=== PATIENT | female | born 1990 | race Caucasian/White ===

== ENCOUNTER 2019-01-21 17:03 | Inpatient (IN) ==
[2019-01-21] MEDS ORDERED: KETOROLAC TROMETHAMINE 15 MG/ML VIAL IV STA (17:31)
[2019-01-21 17:46] LABS: Basophils # (auto) 0.01 K/uL (0-0.2); Basophils % (auto) 0.2 %; Eosinophils # (auto) 0.03 K/uL (0-0.5); Eosinophils % (auto) 0.6 %; Hematocrit (blood only) 37.5 % (37-47); Hemoglobin 13.1 g/dL (12.0-16.0); Immature Granulocytes # (auto) 0.02 K/uL (0.00-0.02); Immature Granulocytes % (auto) 0.4 %; Lymphocytes # (auto) 1.21 K/uL (1.2-3.4); Lymphocytes % (auto) 24.7 %; Mean Corpuscular Hgb Conc 34.9 g/dL (32-36); Mean Corpuscular Volume 91.7 fL (80-100); Mean Platelet Volume 8.7 fL (7.4-10.4); Monocytes # (auto) 0.61 K/uL (0.11-0.59); Monocytes % (auto) 12.5 %; Neutrophils # (auto) 3.01 K/uL (1.4-6.5); Neutrophils % (auto) 61.6 %; Platelet Count 172 K/uL (130-400); RDW Coefficient of Variation 12.3 % (11.5-14.5); RDW Standard Deviation 41.6 fL (36.4-46.3); Red Blood Count 4.09 M/uL (4.2-5.4); White Blood Count 4.89 K/uL (4.8-10.8)
[2019-01-21] MEDS ORDERED: DOXYCYCLINE HYCLATE 100 MG in DEXTROSE 5% 100 ML IV STA (17:57)
[2019-01-21] MEDS ORDERED: metroNIDAZOLE 500 MG/100 ML BAG IV STA (17:57)
[2019-01-21 18:18] LABS: BUN Creatinine Ratio 10.2 (10-20); Calcium 8.7 mg/dl (8.5-10.1); Creatinine Clr Calc Pharmacy 113.4 ml/min; Est GFR (African American) 133.4; Est GFR (Non-African American) 115.1; Potassium 3.6 mmol/L (3.5-5.1)
--- NOTE | 2019-01-21 18:25 | Emergency Department Note ---
Entered by Allegra Reveles acting as a scribe for Sixto Herrmann M.D. History of Present Illness General Chief complaint: Infection, Wound Stated complaint: RT HAND/WRIST INFECTION - DUE TO CAT BITE Source: patient Limitations: no limitations History of Present Illness Provider complaint: Infection Onset (ago): day(s) 1 Location: upper extremity (+hand) and right Radiation: proximal Maximum Pain Intensity: 8 Quality: + burning Associated symptoms: no fever/chills Treatments prior to arrival: other (+Augmentin ) The patient is a 28 year old female who presents to the Emergency Room with com plaints of an infection that began 1 day prior to arrival. The patient states that she was bitten on her right hand by a stray cat 1 day prior to arrival. The patient states that she immediately came to the ED after the bite. The patient states that she was given IV antibiotics and was then discharged home. The patient states that the rash started to spread so she states she came back to the ED. The patient states that she was given IV antibiotics and Augmentin prior to discharge. The patient states that she took 1 dose of her antibiotic last night and another dosage prior to arrival. The patient states that even after taking her antibiotics, the rash is spreading down her right forearm and states that her pain now radiates to her wrist. The patient describes her pain as a burning in quality. The patient denies any fevers. 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 and A total of 10 systems reviewed and were otherwise negative Physical Exam Vital Signs Vital Signs - 24 hr 01/21/19 17:07 Temperature 36.9 C Temperature Source Oral Sepsis Recent Fever Within 48 Hours No Sepsis New/Unexplained Change in Mental Status No Sepsis Action Taken by Nursing No Action Required Pulse Rate 72 Pulse Rhythm Regular Pulse Strength Normal Respiratory Rate 18 Respiratory Effort / Characteristics Non-Labored Spontaneous Respiratory Depth Normal Respiratory Pattern Regular Blood Pressure 129/83 Blood Pressure Mean 98 Blood Pressure Position Sitting Pulse Oximetry 100 Oxygen Delivery Method Room Air GENERAL: Awake, alert, well-appearing, in no distress. HENT: Normocephalic, atraumatic. EYES: Normal conjunctiva. Sclera non-icteric. RESPIRATORY: Normal respiratory effort. CARDIAC: Normal rate. Extremities warm and well perfused. RECTAL: Deferred. UPPER EXTREMITIES: Neurovascularly intact right hand, swelling and erythema. Thenar eminence extending to the right wrist and distal forearm, tender with no fluctuance, extends beyond prior demarcation. LOWER EXTREMITIES: Calves are equal size bilaterally and non-tender. No edema NEURO: Normal sensorium. No sensory or motor deficits noted. No facial droop or slurred speech. SKIN: Warm and dry. No rash or jaundice noted. Course 1719: The patient was evaluated in room C6, and a complete history and physical examination were performed. 1800: I checked on the patient. The patient was updated on their imaging and lab results. 1826: I discussed the patient's case with Henry Dejesus who will evaulate the patient for further hospitalization. Danette Ledbetter also recommends the patient receive an XRAY. Consultations Consultation #1: Henry Dejesus Time: 18:26 Administered Medications Ioversol (Optiray 320 100ml) 89 ml IV ONCE PRN PRN Reason: Interaction Checking Stop: 01/25/19 20:24 Last Admin: 01/21/19 20:26 Dose: 89 ml Documented by: [id number] Discontinued Medications Doxycycline Hyclate 100 mg/ (Dextrose) 110 mls @ 50 mls/hr IV NOW STA Stop: 01/21/19 20:08 Last Admin: 01/21/19 18:44 Dose: 50 mls/hr Documented by: [id number] Ketorolac Tromethamine (Toradol) 15 mg IV NOW STA Stop: 01/21/19 17:32 Last Admin: 01/21/19 17:42 Dose: 15 mg Documented by: [id number] Medical Decision Making Differential Diagnosis Differential diagnosis includes etiologies such as cellulitis, abscess, MRSA i nfection, DVT, necrotizing fasciitis, dermatitis, drug eruption, as well as others were entertained. Medical Records Attestation: I reviewed the patient's medical records. Home Medications Current Medication List: was personally reviewed by me Laboratory Data Attestation: I reviewed the patient's lab results. Result diagrams: 01/21/19 17:33 01/21/19 17:33 Lab Results 01/21/19 01/21/19 Range/Units 17:33 17:33 WBC 4.89 (4.8-10.8) K/uL RBC 4.09 L (4.2-5.4) M/uL Hgb 13.1 (12.0-16.0) g/dL Hct 37.5 (37-47) % MCV 91.7 (80-100) fL MCH 32.0 (25-34) pg MCHC 34.9 (32-36) g/dL RDW Std Deviation 41.6 (36.4-46.3) fL RDW Coeff of Tay 12.3 (11.5-14.5) % Plt Count 172 (130-400) K/uL MPV 8.7 (7.4-10.4) fL Immature Gran % (Auto) 0.4 % Neut % (Auto) 61.6 % Lymph % (Auto) 24.7 % [place] % (Auto) 12.5 % Eos % (Auto) 0.6 % Baso % (Auto) 0.2 % Immature Gran # (Auto) 0.02 (0.00-0.02) K/uL Neut # (Auto) 3.01 (1.4-6.5) K/uL Lymph # (Auto) 1.21 (1.2-3.4) K/uL [place] # (Auto) 0.61 H (0.11-0.59) K/uL Eos # (Auto) 0.03 (0-0.5) K/uL Baso # (Auto) 0.01 (0-0.2) K/uL Sodium 137 (136-145) mmol/L Potassium 3.6 (3.5-5.1) mmol/L Chloride 105 (98-107) mmol/L Carbon Dioxide 26 (21-32) mmol/L Anion Gap 6.0 (3-11) BUN 7 D (7-18) mg/dl Creatinine 0.71 (0.6-1.2) mg/dl Est Cr Clr Drug Dosing 113.4 ml/min Est GFR ( Amer) 133.4 Est GFR (Non-Af Amer) 115.1 BUN/Creatinine Ratio 10.2 (10-20) Glucose 83 (70-99) mg/dl Calcium 8.7 (8.5-10.1) mg/dl Imaging Data Radiologist's Impression: Radiology results as stated below per my review and the radiologist's interpretation: XR wrist RT min 3V routine HISTORY: 28 years-old Female bite acute soft tissue wound of the right forearm and wrist COMPARISON: None available TECHNIQUE: 3 views of the right wrist FINDINGS: No acute fracture, dislocation, significant degenerative changes, bony erosion or opaque foreign body. Mild soft tissue swelling about the lateral distal forearm. IMPRESSION: Mild soft tissue swelling without acute fracture or opaque foreign body. The above report was generated using voice recognition software. It may contain grammatical, syntax or spelling errors. Electronically signed by: Nazario Oswald M.D. 01/21/2019 6:46 PM Blood Pressure Blood Pressure Findings: Normal blood pressure MDM Narrative Patient is a 28-year-old female without significant past medical history presenting for reevaluation of wound to her right upper extremity. Evidently sustained a cat bite there as well as scratch yesterday. Seen here twice yeste rday initially given Augmentin as well as rabies immune globulin vaccine. Having pain here. Increasing erythema and given doses of Unasyn last night. Evidently today the infection seems to be worsening with redness spreading outside of the outlined area and is now circumferential. No fevers upon arrival. Basic laboratory studies show actually slightly improving leukocytosis. Toradol given for pain. Concerned about the spread. Do not believe this represents abscess formation yet or necrotizing fasciitis. X-ray obtained without significant findings. Not entirely circumferential at this point but again expanding beyond borders from last night. Do not believe this represents tenosynovitis at this point. Doubt joint infection at this time. Seems to be Augmentin/Unasyn failure. Discussed with pharmacy at some length and given a dose of doxycycline and Flagyl. Discussed with patient option of again trying outpatient treatment versus coming in for antibiotics and she wished to stay to monitor for continued improvement. [facility] Impression & Plan Cat bite, Cellulitis of right wrist Discharge Plan Visit Data *Final* Discharge Date/Time: 01/21/19 19:35 Chief Complaint: Infection, Wound Stated Complaint: RT HAND/WRIST INFECTION - DUE TO CAT BITE ED Provider: Sixto Herrmann Discharge Problem: Cat bite, Cellulitis of right wrist Patient Disposition: Admitted As Inpatient Discharge Instructions Interventions: ED Discharge Assessment Last Done: 01/21/19 19:35 The scribe's documentation has been prepared under my direction and personally reviewed by me in its entirety. I confirm that the note above accurately reflects all work, treatment, procedures, and medical decision making performed by me.
--- NOTE | 2019-01-21 18:47 | XRay Report ---
XR wrist RT min 3V routine HISTORY: 28 years-old Female bite acute soft tissue wound of the right forearm and wrist COMPARISON: None available TECHNIQUE: 3 views of the right wrist FINDINGS: No acute fracture, dislocation, significant degenerative changes, bony erosion or opaque foreign body . Mild soft tissue swelling about the lateral distal forearm. IMPRESSION: Mild soft tissue swelling without acute fracture or opaque foreign body. The above report was generated using voice recognition software. It may contain grammatical, syntax o r spelling errors. Electronically signed by: Nazario Oswald M.D. 01/21/2019 6:46 PM
[2019-01-21] MEDS ORDERED: ACETAMINOPHEN 325 MG TAB PO PRN (19:41)
--- NOTE | 2019-01-21 20:11 | History & Physical Report ---
Date of Service January 21, 2019 Assessment & Plan (1) Infected cat bite of hand: -Admit to [facility] -Patient presenting for evaluation of worsening infection of cat bite to right hand despite 2 other ED visits since yesterday and receiving oral Augmentin and 2 doses of IV Unasyn -Currently afebrile, labs unremarkable; does not appear septic -Received IV doxycycline and IV Flagyl in the ED, will continue with both -Concern for possible tenosynovitis, will check CT -Ortho consult, case discussed with Dr. Lockwood (2) DVT prophylaxis: -SCDs, ambulate History of Present Illness Chief Complaint: Infected cat bite Primary Care Provider: NO PCP 28-year-old female who presents to the ED for evaluation of infected cat bite to the right hand. Bite occurred on 01/20 and patient was seen in the ED and received initial rabies vaccine and discharged on Augmentin. Patient return to the ER the same evening for worsening of the wound and received 2 doses of Unasyn and was instructed to continue Augmentin. Patient reports that she has had continued redness and increasing pain around the bite area and extending into the right forearm. No drainage has been noted. She denies fevers and chills. No chest pain or shortness of breath. She denies lightheadedness, dizziness, diaphoresis, syncopal events. No abdominal pain, nausea, vomiting, diarrhea. She denies any urinary symptoms. In the ED, patient is hemodynamically stable and labs are unremarkable. She was given IV Flagyl, IV doxy, IV Toradol. 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 Beliefs That Will Affect Care: None Current Living Situation: Spouse Other Information That Helps Us Care for You: No Feels Safe at Home: Yes Safety Concerns: Feels Safe At This Time Smoking Status: Never smoker Hx Alcohol Use: Yes Alcohol type: wine Alcohol Intake Frequency Comment: 12 drinks/week Hx Substance Use: No Review of Systems Review of Systems: ROS per HPI, all other systems reviewed and negative Physical Exam Constitutional: WD/WN, vitals as above Eyes: PERRL, conjunctivae normal, anicteric sclerae ENMT: external ear and nose normal, oropharynx normal Respiratory: normal respiratory effort, lungs clear to auscultation Cardiovascular: Rate/Rhythm: regular rate and regular rhythm Vessels: normal peripheral pulses Extremities: no edema Gastrointestinal (Abdomen): normal bowel sounds, soft, nontender, no hepatosplenomegaly Musculoskeletal: no cyanosis or clubbing, extremities motor strength 5/5 Extremities: + hand abnormality (Puncture wounds noted over thenar portion of right hand with extensive surrounding edema and erythema streaking up the forearm extending outside of previously marked area, no drainage noted; good radial pulse, pain with and limited extension and flexion of thumb and wrist) Right Skin: no rashes, warm and dry Neurologic: PERRL, EOMI, accommodation nl, no face palsy, no dysarthria Psychiatric: A+Ox3, euthymic affect Results & Data Vital Signs (Past 12 Hours) Vital Signs Temp Pulse Resp BP Pulse Ox 01/21/19 19:35 36.8 C 76 18 112/76 99 01/21/19 17:07 36.9 C 72 18 129/83 100 Laboratory Results Short CBC 01/21/19 Range/Units 17:33 WBC 4.89 (4.8-10.8) K/uL Hgb 13.1 (12.0-16.0) g/dL Hct 37.5 (37-47) % Plt Count 172 (130-400) K/uL BMP 01/21/19 17:33 Sodium 137 Potassium 3.6 Chloride 105 Carbon Dioxide 26 BUN 7 D Creatinine 0.71 Glucose 83 Calcium 8.7 Diagnostic Findings RIGHT WRIST XR IMPRESSION: Mild soft tissue swelling without acute fracture or opaque foreign body. Code Status & VTE Plan VTE Prophylaxis Plan VTE Prophylaxis will be ordered: Yes Supervising Physician Co-Signing Physician Notes Pt was seen and examined. Agreed with Danette CROUCH exam, assessment and plan. 28 yo Female with no significant PMH presents to the ED for infected right hand cat bite. Pt said that she was in the ER yesterday after bitting by a cat. She said that she received rabies vaccine and 2 doses of unasyn and was discharge home on Augmentin. Pt said that she woke this morning with right hand erythema, tenderness with right thumb and thenar area swelling. She said that she took 2 doses of the Augmentin (one last night and this morning). Xray of the right wrist showed mild soft tissue swelling without acute fracture or opaque foreign body. Received IV doxy and flagyl in the ER. Will continue IV abx for now. Will get a CT with IV contrast of right hand area. Pain control. Ortho consult. Follow blood cx and CBC. Please refer to Danette CROUCH documentation for other problems. MD Deborah
[2019-01-21] MEDS ORDERED: IOVERSOL 100ml IV PRN (20:25)
--- NOTE | 2019-01-21 21:02 | CT Scan Report ---
CT hand RT w con HISTORY: 28 years-old Female infected cat bite acute right hand pain and swelling status post animal bite COMPARISON: Right wrist radiographs of same day TECHNIQUE: Multiple axial CT images of the right hand were obtained following the intravenous adminis tration of 89 mL Optiray 320 IV. A dose lowering technique was used consistent with the principals of SHIVANI. FINDINGS: Mild to moderate subcutaneous edema is noted about the volar aspect of the mid to distal forearm, vol ar hand and wrist, most pronounced laterally. No opaque foreign body or drainable fluid collection. S tudy is not tailored to assess the intrinsic ligaments and tendons. The visualized ligaments and tend ons however appear unremarkable on this study. No definite tenosynovitis or myositis identified. No acute fracture, dislocation, opaque foreign body or significant degenerative changes. No bony eros ion identified. IMPRESSION: 1. Mild to moderate subcutaneous edema about the distal forearm, hand and wrist as above is suggestiv e of cellulitis. No opaque foreign body or drainable fluid collection. 2. No acute fracture, dislocation or bony erosive changes. The above report was generated using voice recognition software. It may contain grammatical, syntax o r spelling errors. Electronically signed by: Nazario Oswald M.D. 01/21/2019 9:01 PM
[2019-01-21] MEDS: KETOROLAC TROMETHAMINE 15 MG/ML VIAL IV PRN (23:19)
[2019-01-22] MEDS: metroNIDAZOLE 500 MG/100 ML BAG IV SCH ×3 (03:41→21:31)
[2019-01-22] MEDS: KETOROLAC TROMETHAMINE 15 MG/ML VIAL IV PRN ×2 (06:03→21:06)
[2019-01-22] MEDS: DOXYCYCLINE HYCLATE 100 MG in DEXTROSE 5% 100 ML IV SCH ×2 (06:04→18:29)
[2019-01-22 06:30] LABS: Hematocrit (blood only) 34.2 % (37-47); Hemoglobin 11.9 g/dL (12.0-16.0); Mean Corpuscular Hgb Conc 34.8 g/dL (32-36); Mean Corpuscular Volume 91.7 fL (80-100); Mean Platelet Volume 8.9 fL (7.4-10.4); Platelet Count 167 K/uL (130-400); RDW Coefficient of Variation 12.2 % (11.5-14.5); RDW Standard Deviation 41.5 fL (36.4-46.3); Red Blood Count 3.73 M/uL (4.2-5.4); White Blood Count 3.34 K/uL (4.8-10.8)
[2019-01-22 07:03] LABS: Calcium 8.2 mg/dl (8.5-10.1); Creatinine Clr Calc Pharmacy 117.9 ml/min; Est GFR (Non-African American) 118.2; Potassium 4.1 mmol/L (3.5-5.1)
--- NOTE | 2019-01-22 09:17 | Hospitalist Progress Note ---
Date of Service January 22, 2019 Assessment & Plan (1) Infected cat bite of hand: CT hand and arm: IMPRESSION: 1. Mild to moderate subcutaneous edema about the distal forearm, hand and wrist as above is suggestive of cellulitis. No opaque foreign body or drainable fluid collection. 2. No acute fracture, dislocation or bony erosive changes. afebrile, no leukocytosis clinically much improved continue Doxy + Flagyl Ortho consulted, recommends to continue IV abx, re-eval tomorrow monitor (2) DVT prophylaxis: -SCDs, ambulate discussed case and plan of care with patient and her in detail, at length they are understanding, agreeable and comfortable with plan of care all questions answered Subjective ff up for cat bite with cellulitis of the right hand and forearm seen resting in bed, comfortable states she feels much better overall right hand, wrist and forearm also feels much better less pain, swelling, tenderness; also better ROM denies fever/chills, shortness of breath, chest pain no other symptoms Review of Systems Review of Systems: All systems reviewed & are unremarkable except as noted in HPI & below Physical Exam Physical Exam: General- oriented x 3, not in distress, speaks in sentences with no effort or accessory muscle use Head- atraumatic Eyes- PERRL, EOMI, anicteric ENT- oropharynx clear Neck- supple, no JVD, no adenopathy, no thyromegaly; carotids +2/2, no bruits appreciated Lungs- clear to auscultation bilaterally, no rales/wheezes Heart- normal rate, regular rhythm; no murmur, no gallop, no rub appreciated Abdomen- normal bowel sounds, nondistended, soft, nontender, no masses or hepatosplenomegaly Extremities- right hand- mild edema of the fingers and pal,, almost full ROM, no erythema of the fingers, mild erythema of the palmar region wounds in the thenar region dry, no drainage/bleeding right foerarm:very mild erythema, extending around 3 in from demarcation line proximally, mild edema, moderate tenderness, no warmth compared to pictures from the day prior,affected area is much better no pretibial edema, no calf tenderness; peripheral pulses intact Neuro- alert, oriented x 3; CN 2-12 grossly intact; motor 5/5 bilaterally;sensation 100% on all extremities; no other gross focal neurologic deficits Skin- warm & dry Results & Data Vital Signs (Past 12 Hours) Vital Signs Temp Pulse Resp BP Pulse Ox 01/22/19 07:00 36.7 C 57 L 16 108/69 98 01/21/19 23:03 36.7 C 70 20 117/70 99 Laboratory Results Laboratory Results - last 24 hr 01/21/19 01/21/19 01/22/19 17:33 17:33 05:57 WBC 4.89 3.34 L RBC 4.09 L 3.73 L Hgb 13.1 11.9 L Hct 37.5 34.2 L MCV 91.7 91.7 MCH 32.0 31.9 MCHC 34.9 34.8 RDW Std Deviation 41.6 41.5 RDW Coeff of Tay 12.3 12.2 Plt Count 172 167 MPV 8.7 8.9 Immature Gran % (Auto) 0.4 Neut % (Auto) 61.6 Lymph % (Auto) 24.7 [place] % (Auto) 12.5 Eos % (Auto) 0.6 Baso % (Auto) 0.2 Immature Gran # (Auto) 0.02 Neut # (Auto) 3.01 Lymph # (Auto) 1.21 [place] # (Auto) 0.61 H Eos # (Auto) 0.03 Baso # (Auto) 0.01 Sodium 137 Potassium 3.6 Chloride 105 Carbon Dioxide 26 Anion Gap 6.0 BUN 7 D Creatinine 0.71 Est Cr Clr Drug Dosing 113.4 Est GFR ( Amer) 133.4 Est GFR (Non-Af Amer) 115.1 BUN/Creatinine Ratio 10.2 Glucose 83 Calcium 8.7 Specimen Hemolysis 01/22/19 05:57 WBC RBC Hgb Hct MCV MCH MCHC RDW Std Deviation RDW Coeff of Tay Plt Count MPV Immature Gran % (Auto) Neut % (Auto) Lymph % (Auto) [place] % (Auto) Eos % (Auto) Baso % (Auto) Immature Gran # (Auto) Neut # (Auto) Lymph # (Auto) [place] # (Auto) Eos # (Auto) Baso # (Auto) Sodium 138 Potassium 4.1 Chloride 108 H Carbon Dioxide 25 Anion Gap 5.0 BUN 7 Creatinine 0.68 Est Cr Clr Drug Dosing 117.9 Est GFR ( Amer) 137.0 Est GFR (Non-Af Amer) 118.2 BUN/Creatinine Ratio 11.0 Glucose 85 Calcium 8.2 L Specimen Hemolysis
--- NOTE | 2019-01-22 13:54 | Orthopedic Consultation ---
Date of Consultation January 22, 2019 Assessment & Plan (1) Cat bite: at this point it appears the redness and swelling is improving with the IV antibiotics, will cont with these, allow regular diet today but keep NPO after MN tonight to recheck in am. cont to elevate for swelling, can move her fingers as much as her pain allows; CT did not show any fluid collections or abscess ; she has been on oral Augmentin and 2 doses of IV Unasyn, Received IV doxycycline and IV Flagyl in the ED, will continue with both (2) Infected cat bite of hand: History of Present Illness Reason for Consultation: infected cat bite right hand Attending Physician: Dontrell Cruz MD History of Present Illness Elisha is pleasant 28-year-old female who we are consulted on in regards to an infected cat bite to her right hand, the bite occurred on 01/20 with a stray cat, was stuck in a window and was trying to help it out, she was seen in the ER and received initial rabies vaccine and was discharged home on Augmentin. she returned to the ER the same evening for worsening of the wound and received 2 doses of Unasyn and was instructed to continue with the Augmentin. she states the pain and redness continued and has worsened and began to extend into the right forearm. No drainage has been noted. She denies fevers and chills. No chest pain or shortness of breath. She denies lightheadedness, dizziness, diaphoresis, syncopal events. No abdominal pain, nausea, vomiting, diarrhea. she did have some numbness into her thumb but since has resolved, she feels was related to her swelling. 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 Beliefs That Will Affect Care: None Current Living Situation: Spouse Other Information That Helps Us Care for You: No Feels Safe at Home: Yes Safety Concerns: Feels Safe At This Time Smoking Status: Never smoker Hx Alcohol Use: Yes Alcohol type: wine Alcohol Intake Frequency Comment: 12 drinks/week Hx Substance Use: No Review of Systems Review of Systems: All systems reviewed & are unremarkable except as noted in HPI & below Constitutional: no fever and no chills Respiratory: no cough and no dyspnea Cardiovascular: no chest pain, no dyspnea and no orthopnea Gastrointestinal: no abdominal pain, no nausea and no vomiting Musculoskeletal: as per Subjective / HPI Physical Exam Physical Exam: Vital Signs Temp 36.7 C 01/22/19 07:00 Pulse 57 L 01/22/19 07:00 Resp 16 01/22/19 07:00 BP 108/69 01/22/19 07:00 Pulse Ox 98 01/22/19 07:00 Intake & Output 01/21/19 01/22/19 01/22/19 18:59 06:59 18:59 Intake Total 730 / 730 210 / 210 Balance 730 / 730 210 / 210 Weight 71.5 kg 70.9 kg Intake: IV 310 / 310 210 / 210 Vibramycin 100 mg In D5 100 ml 110 / 110 110 / 110 @ 50 mls/hr IV Q12H MACHELLE Rx#: [id number] FLAGYL 500 mg In 100 ml @ 100 200 / 200 100 / 100 mls/hr IV Q8H MACHELLE Rx#:[id number] Oral 420 / 420 Constitutional: WD/WN, vitals as above no acute distress Musculoskeletal: right upper extremity: erythema present over the radial and thenar aspect of the thumb, puncture wounds noted over the palmar surface of the thumb, erythema does extend approximately 10cm up the forearm but appears less than earlier markings; she is able to extend her thumb and opposition but with some pain; currently there is no drainage noted from the puncture wounds; radial +2, CR <2 seconds, diffuse tenderness to the wrist both radial and ulnar sided; discomfort noted with wrist motion; Results & Data Vital Signs (Past 12 Hours) Vital Signs Temp Pulse Resp BP Pulse Ox 01/22/19 07:00 36.7 C 57 L 16 108/69 98 Laboratory Results Laboratory Results WBC 3.34 K/uL (4.8-10.8) L 01/22/19 05:57 RBC 3.73 M/uL (4.2-5.4) L 01/22/19 05:57 Hgb 11.9 g/dL (12.0-16.0) L 01/22/19 05:57 Hct 34.2 % (37-47) L 01/22/19 05:57 MCV 91.7 fL (80-100) 01/22/19 05:57 MCH 31.9 pg (25-34) 01/22/19 05:57 MCHC 34.8 g/dL (32-36) 01/22/19 05:57 RDW Std Deviation 41.5 fL (36.4-46.3) 01/22/19 05:57 RDW Coeff of Tay 12.2 % (11.5-14.5) 01/22/19 05:57 Plt Count 167 K/uL (130-400) 01/22/19 05:57 MPV 8.9 fL (7.4-10.4) 01/22/19 05:57 Immature Gran % (Auto) 0.4 % 01/21/19 17:33 Neut % (Auto) 61.6 % 01/21/19 17:33 Lymph % (Auto) 24.7 % 01/21/19 17:33 Dawes % (Auto) 12.5 % 01/21/19 17:33 Eos % (Auto) 0.6 % 01/21/19 17:33 Baso % (Auto) 0.2 % 01/21/19 17:33 Immature Gran # (Auto) 0.02 K/uL (0.00-0.02) 01/21/19 17:33 Neut # (Auto) 3.01 K/uL (1.4-6.5) 01/21/19 17:33 Lymph # (Auto) 1.21 K/uL (1.2-3.4) 01/21/19 17:33 Dawes # (Auto) 0.61 K/uL (0.11-0.59) H 01/21/19 17:33 Eos # (Auto) 0.03 K/uL (0-0.5) 01/21/19 17:33 Baso # (Auto) 0.01 K/uL (0-0.2) 01/21/19 17:33 Sodium 138 mmol/L (136-145) 01/22/19 05:57 Potassium 4.1 mmol/L (3.5-5.1) 01/22/19 05:57 Chloride 108 mmol/L (98-107) H 01/22/19 05:57 Carbon Dioxide 25 mmol/L (21-32) 01/22/19 05:57 Anion Gap 5.0 (3-11) 01/22/19 05:57 BUN 7 mg/dl (7-18) 01/22/19 05:57 Creatinine 0.68 mg/dl (0.6-1.2) 01/22/19 05:57 Est Cr Clr Drug Dosing 117.9 ml/min 01/22/19 05:57 Est GFR ( Amer) 137.0 01/22/19 05:57 Est GFR (Non-Af Amer) 118.2 01/22/19 05:57 BUN/Creatinine Ratio 11.0 (10-20) 01/22/19 05:57 Glucose 85 mg/dl (70-99) 01/22/19 05:57 Calcium 8.2 mg/dl (8.5-10.1) L 01/22/19 05:57 Specimen Hemolysis 01/22/19 05:[address] hand RT w con HISTORY: 28 years-old Female infected cat bite acute right hand pain and swelling status post animal bite COMPARISON: Right wrist radiographs of same day TECHNIQUE: Multiple axial CT images of the right hand were obtained following the intravenous administration of 89 mL Optiray 320 IV. A dose lowering technique was used consistent with the principals of SHIVANI. FINDINGS: Mild to moderate subcutaneous edema is noted about the volar aspect of the mid to distal forearm, volar hand and wrist, most pronounced laterally. No opaque foreign body or drainable fluid collection. Study is not tailored to assess the intrinsic ligaments and tendons. The visualized ligaments and tendons however appear unremarkable on this study. No definite tenosynovitis or myositis identified. No acute fracture, dislocation, opaque foreign body or significant degenerative changes. No bony erosion identified. IMPRESSION: 1. Mild to moderate subcutaneous edema about the distal forearm, hand and wrist as above is suggestive of cellulitis. No opaque foreign body or drainable fluid collection. 2. No acute fracture, dislocation or bony erosive changes. (1) Cat bite Encounter type: subsequent encounter Qualified Code(s): W55.01XD - Bitten by cat, subsequent encounter
[2019-01-23] MEDS: metroNIDAZOLE 500 MG/100 ML BAG IV SCH (04:42)
[2019-01-23] MEDS: DOXYCYCLINE HYCLATE 100 MG in DEXTROSE 5% 100 ML IV SCH (05:40)
[2019-01-23] MEDS ORDERED: RABIES VACC (IMOVAX) HUMAN DIPL CELL 2.5 UNITS/ML SYR IM ONE ×2 (07:00→09:00)
[2019-01-23 07:36] LABS: Basophils # (auto) 0.01 K/uL (0-0.2); Basophils % (auto) 0.3 %; Hematocrit (blood only) 35.8 % (37-47); Hemoglobin 12.4 g/dL (12.0-16.0); Lymphocytes # (auto) 1.07 K/uL (1.2-3.4); Lymphocytes % (auto) 32.2 %; Mean Platelet Volume 8.5 fL (7.4-10.4); Monocytes # (auto) 0.48 K/uL (0.11-0.59); Monocytes % (auto) 14.5 %; Neutrophils # (auto) 1.66 K/uL (1.4-6.5); Platelet Count 166 K/uL (130-400); RDW Coefficient of Variation 12.1 % (11.5-14.5); RDW Standard Deviation 40.9 fL (36.4-46.3); Red Blood Count 3.89 M/uL (4.2-5.4); White Blood Count 3.32 K/uL (4.8-10.8)
[2019-01-23 07:37] LABS: Mean Corpuscular Hgb Conc 34.6 g/dL (32-36)
[2019-01-23 07:52] LABS: BUN Creatinine Ratio 11.6 (10-20); Calcium 8.7 mg/dl (8.5-10.1); Creatinine Clr Calc Pharmacy 117.9 ml/min; Est GFR (Non-African American) 118.2; Potassium 4.1 mmol/L (3.5-5.1)
--- NOTE | 2019-01-23 17:45 | Hospitalist Progress Note ---
Date of Service January 23, 2019 Assessment & Plan (1) Infected cat bite of hand: CT hand and arm: IMPRESSION: 1. Mild to moderate subcutaneous edema about the distal forearm, hand and wrist as above is suggestive of cellulitis. No opaque foreign body or drainable fluid collection. 2. No acute fracture, dislocation or bony erosive changes. remains afebrile, no leukocytosis clinically much improved after IV Doxy and Flagyl started blood cultures: negative x 48 hours evaluated by Ortho, no surgical intervention recommended affected area continued to improve significantly patient unable to wait for Ortho re-evaluation on discharge day as she had to catch a flight at 10am overall, cellulitis improved significantly with near resolution of edema, no erythema discharge plan: Doxycycline 100mg BID and Flagyl 500mg TID x 10 days precautions given to return to ER immediately if with worsening of symptoms instructions given re: wound care patient also to complete rabies vaccine series advised to ff up with PCP early next week patient verbalized understanding, and she was agreeable and comfortable with the plan (2) DVT prophylaxis: -SCDs, ambulate Dispo: ff up with PCP early next week (patient prefers to ff up with non [facility] Prov ider) Subjective ff up for cat bite, cellulitis right hand and forearm seen resting in bed, in good spirits states she feels much better overall right hand and forerarm also feels better as per patient able to move fingers, hands, wrist much bettter pain and tenderness much less denies other symptoms no fever/chills states she is ready and would like to be discharged today Review of Systems Review of Systems: All systems reviewed & are unremarkable except as noted in HPI & below Physical Exam Physical Exam: General- oriented x 3, not in distress, speaks in sentences with no effort or accessory muscle use Eyes- anicteric Neck- no JVD Lungs- clear breath sounds bilaterally, no rales/wheezes Heart- normal rate, regular rhythm; no murmurs Abdomen- normal bowel sounds, nondistended, soft, nontender Extremities- right hand- very minimal edema on the hypothenar region, puncture wounds healing well erythema of hand and foreram almost resolved no warmth, very minimal tenderness no streaking on the arm able to move wrist fully no pretibial edema, no calf tenderness Neuro- alert, oriented x 3; no gross focal neurologic deficits Skin- warm & dry Results & Data Vital Signs (Past 12 Hours) Vital Signs Temp Pulse Resp BP BP Pulse Ox 01/23/19 09:49 36.7 C 60 20 112/74 105/65 97 01/23/19 06:38 36.7 C 60 20 105/65 97 Laboratory Results Laboratory Results - last 24 hr 01/23/19 01/23/19 07:27 07:27 WBC 3.32 L RBC 3.89 L Hgb 12.4 Hct 35.8 L MCV 92.0 MCH 31.9 MCHC 34.6 RDW Std Deviation 40.9 RDW Coeff of Tay 12.1 Plt Count 166 MPV 8.5 Immature Gran % (Auto) 0.0 Neut % (Auto) 50.0 Lymph % (Auto) 32.2 Gates % (Auto) 14.5 Eos % (Auto) 3.0 Baso % (Auto) 0.3 Immature Gran # (Auto) 0.00 Neut # (Auto) 1.66 Lymph # (Auto) 1.07 L Gates # (Auto) 0.48 Eos # (Auto) 0.10 Baso # (Auto) 0.01 Sodium 140 Potassium 4.1 Chloride 109 H Carbon Dioxide 24 Anion Gap 7.0 BUN 8 Creatinine 0.68 Est Cr Clr Drug Dosing 117.9 Est GFR ( Amer) 137.0 Est GFR (Non-Af Amer) 118.2 BUN/Creatinine Ratio 11.6 Glucose 90 Calcium 8.7
--- NOTE | 2019-01-23 18:01 | Discharge Summary ---
Date of Service January 23, 2019 Admission HPI Per Admitting Provider 28-year-old female who presents to the ED for evaluation of infected cat bite to the right hand. Bite occurred on 01/20 and patient was seen in the ED and received initial rabies vaccine and discharged on Augmentin. Patient return to the ER the same evening for worsening of the wound and received 2 doses of Unasyn and was instructed to continue Augmentin. Patient reports that she has had continued redness and increasing pain around the bite area and extending into the right forearm. No drainage has been noted. She denies fevers and chills. No chest pain or shortness of breath. She denies lightheadedness, di zziness, diaphoresis, syncopal events. No abdominal pain, nausea, vomiting, diarrhea. She denies any urinary symptoms. In the ED, patient is hemodynamically stable and labs are unremarkable. She was given IV Flagyl, IV doxy, IV Toradol. Admission Exam Per Admitting Provider Constitutional: WD/WN, vitals as above Eyes: PERRL, conjunctivae normal, anicteric sclerae ENMT: external ear and nose normal, oropharynx normal Respiratory: normal respiratory effort, lungs clear to auscultation Cardiovascular: Rate/Rhythm: regular rate and regular rhythm Vessels: normal peripheral pulses Extremities: no edema Gastrointestinal (Abdomen): normal bowel sounds, soft, nontender, no hepatosplenomegaly Musculoskeletal: no cyanosis or clubbing, extremities motor strength 5/5 Extremities: + hand abnormality (Puncture wounds noted over thenar portion of right hand with extensive surrounding edema and erythema streaking up the forearm extending outside of previously marked area, no drainage noted; good radial pulse, pain with and limited extension and flexion of thumb and wrist) Right Skin: no rashes, warm and dry Neurologic: PERRL, EOMI, accommodation nl, no face palsy, no dysarthria Psychiatric: A+Ox3, euthymic affect Principal Diagnosis CAT BITE, CELLULITIS OF THE RIGHT HAND AND FOREARM Discharge Exam General- oriented x 3, not in distress, speaks in sentences with no effort or accessory muscle use Eyes- anicteric Neck- no JVD Lungs- clear breath sounds bilaterally, no rales/wheezes Heart- normal rate, regular rhythm; no murmurs Abdomen- normal bowel sounds, nondistended, soft, nontender Extremities- right hand- very minimal edema on the hypothenar region, puncture wounds healing well erythema of hand and foreram almost resolved no warmth, very minimal tenderness no streaking on the arm able to move wrist fully no pretibial edema, no calf tenderness Neuro- alert, oriented x 3; no gross focal neurologic deficits Skin- warm & dry Discharge Data Allergies Allergy/AdvReac Type Severity Reaction Status Date / Time No Known Allergies Allergy Verified 01/20/19 20:24 Consultations 01/21/19 18:30 ED Decision to Admit Stat 01/21/19 19:41 Consult Orthopedic Surgery Routine Ordered Studies 01/21/19 19:41 CT hand RT w con Urgent CT hand RT w con HISTORY: 28 years-old Female infected cat bite acute right hand pain and swelling status post animal bite COMPARISON: Right wrist radiographs of same day TECHNIQUE: Multiple axial CT images of the right hand were obtained following the intravenous administration of 89 mL Optiray 320 IV. A dose lowering technique was used consistent with the principals of SHIVANI. FINDINGS: Mild to moderate subcutaneous edema is noted about the volar aspect of the mid to distal forearm, volar hand and wrist, most pronounced laterally. No opaque foreign body or drainable fluid collection. Study is not tailored to assess the intrinsic ligaments and tendons. The visualized ligaments and tendons however appear unremarkable on this study. No definite tenosynovitis or myositis identified. No acute fracture, dislocation, opaque foreign body or significant degenerative changes. No bony erosion identified. IMPRESSION: 1. Mild to moderate subcutaneous edema about the distal forearm, hand and wrist as above is suggestive of cellulitis. No opaque foreign body or drainable fluid collection. 2. No acute fracture, dislocation or bony erosive changes. Hospital Course (1) Infected cat bite of hand: CT hand and arm: IMPRESSION: 1. Mild to moderate subcutaneous edema about the distal forearm, hand and wrist as above is suggestive of cellulitis. No opaque foreign body or drainable fluid collection. 2. No acute fracture, dislocation or bony erosive changes. remains afebrile, no leukocytosis clinically much improved after IV Doxy and Flagyl started blood cultures: negative x 48 hours evaluated by Ortho Svc, no surgical intervention recommended affected area continued to improve significantly patient unable to wait for Ortho re-evaluation on discharge day as she had to catch a flight at 10am overall, cellulitis improved significantly with near resolution of edema, no erythema discharge plan: Doxycycline 100mg BID and Flagyl 500mg TID x 10 days precautions given to return to ER immediately if with worsening of symptoms instructions given re: wound care patient also to complete rabies vaccine series advised to ff up with PCP early next week patient verbalized understanding, and she was agreeable and comfortable with the plan (2) DVT prophylaxis: -SCDs, ambulate Dispo: ff up with PCP early next week (patient prefers to ff up with non [facility] Provider) Total Time Total Time Spent Total Time Spent (In Minutes): 45 minutes Discharge Plan Discharge Items Patient Disposition: Home - Self-Care Reason For Visit: INFECTED CAT BITE Discharge Diagnosis: CAT BITE, CELLULITIS OF THE HAND AND FOREARM Discharge Goals: Decrease discomfort, Diagnostic testing and Therapeutic intervention Activity: As commented below Activity Comment: NO HEAVY EXERTION, REST THE RIGHT HAND AND ARM MUCH POSSIBLE Lifting: Wait until after follow-up appointment Exercise/Sports: Wait until after follow-up appointment Driving/Machine Use Comment: NO DRIVING UNTIL RE-EVALUATED BY PRIMARY CARE PHYSICIAN Non-emergency contact: Primary Care Provider Call non-emergency contact if: you have any medication questions Follow-up/Referrals: PCP,NO [Primary Care Provider] - Diet: Regular Addtl Provider Instructions: RETURN TO THE ER IMMEDIATELY IF WITH RECURRENCE/WORSENING OF SYMPTOMS, INCLUDING INCREASING REDNESS, PAIN, SWELLING, WARMTH, DRAINAGE TO THE AFFECTED AREAS, FEVER/CHILLS. STAY WELL HYDRATED. INCLUDE PROBIOTIC IN YOUR DAILY DIET WHILE ON ANTIBIOTICS AND AT LEAST 1 WEEK AFTER COMPLETING ANTIBIOTIC COURSE. FOLLOW UP WITH PRIMARY CARE PHYSICIAN EARLY NEXT WEEK. IF YOU NEED AN APPOINTMENT WITH A [facility] PRIMARY CARE PHYSICIAN, YOU MAY CALL [phone]. Prescriptions: New doxycycline hyclate 100 mg capsule 100 mg PO BID 10 Days Qty: 20 RF: 0 metronidazole [Flagyl] 500 mg tablet 500 mg PO Q8H 10 Days Qty: 30 RF: 0 Continued norgestimate-ethinyl estradiol [Tri-Sprintec (28)] 0.18/0.215/0.25 mg-35 mcg (28) Tablet 1 tab PO QAM RF: 0 Discontinued amoxicillin-pot clavulanate [Augmentin] 875-125 mg tablet 1 tab PO BID 10 Days Qty: 20 RF: 0 Stand-Alone Forms: [facility] Discharge Orders: Discharge Order (Routine); Ordered 01/23/19 Ordered By: Dontrell Cruz Admission Data Admit Date/Time: 01/21/19 19:06 Attending Provider: Dontrell Cruz Admit Provider: Sara Cabrera Primary Care Provider: PCP,NO Other Providers: Sara Cabrera ; Ad Lockwood ; Brian Li Service: Medical Other Interventions: Discharge Summary Assessment (RN) Last Done: 01/23/19 09:49 DC Date/Time DO NOT enter until pt leaves facility: 01/23/19 10:10
== END 2019-01-23 10:10 | disposition home or self-care (01) | DRG 605 ==
LOC: ED 17:03 → 2N 19:06 → SUATTDRO 19:06 → 2N 19:35

== ENCOUNTER 2021-10-07 07:47 | Inpatient (IN) ==
[2021-10-07] MEDS ORDERED: OXYTOCIN 30 UNITS/500 ML BAG IV PRN ×2 (08:18→08:21)
[2021-10-07 08:50] LABS: Hematocrit (blood only) 37.8 % (37-47); Hemoglobin 13.1 g/dL (12.0-16.0); Mean Corpuscular Hemoglobin 32.3 pg (25-34); Mean Corpuscular Hgb Conc 34.7 g/dL (32-36); Mean Corpuscular Volume 93.1 fL (80-100); Mean Platelet Volume 8.9 fL (7.4-10.4); Platelet Count 235 K/uL (130-400); RDW Coefficient of Variation 12.7 % (11.5-14.5); RDW Standard Deviation 43.2 fL (36.4-46.3); Red Blood Count 4.06 M/uL (4.2-5.4); White Blood Count 12.17 K/uL (4.8-10.8)
[2021-10-07] MEDS: LACTATED RINGER'S 1,000 ML IV PRN ×4 (09:06→23:03)
--- NOTE | 2021-10-07 09:33 | History & Physical Report ---
Date of Service October 07, 2021 Assessment & Plan (1) Unfavorable cervix in term : (2) Encounter for induction of labor: Plan: Because the cervical balloon has not been expelled from the cervix, we will leave it intact and begin Pitocin augmentation of her labor. Epidural analgesia when patient requests. BSG to be done on admission. Anticipate vaginal delivery. Admission and Anticipated Discharge Date Admission Date: October 07, 2021 History of Present Illness Primary Care Provider: Negin Guillen MD Patient is a 30-year-old 2 para 0-0-1-0 white female EDC of 10/02/2021 who presents for induction of labor because of postterm . She received a cervical balloon on the evening of 10/06/2021 and it is still in place. She had cramping throughout the evening but no increase in discharge or bleeding. also was complicated by GDM diet-controlled. GBS is negative. Allergies Allergy/AdvReac Type Severity Reaction Status Date / Time No Known Allergies Allergy Verified 10/07/21 09:28 Home Medications Medication Instructions Recorded Confirmed Type prenat.vits,christin,ode-[id number] 1 tab PO DAILY 07/16/20 10/06/21 History omega-3 fatty acids 1,000 mg 1,000 mg PO DAILY 02/22/21 10/06/21 History capsule (Fish Oil Concentrate) Patient History Medical History (Updated 10/07/21 @ 09:32 by Jolene Ritter MD, FACOG) Acute sore throat Benign tumor of labia majora removed Cat bite Infected cat bite of hand Itching of ear Missed Rabies, need for prophylactic vaccination against Surgical History H/O removal of cyst urinary tract Family History Grandfather (Paternal) Stroke Denies family history of Ovarian cancer Breast cancer Colorectal cancer Uterine cancer Social History (Updated 02/22/21 @ 10:59 by Abby Roy) Smoking Status: Never smoker Second Hand Exposure: No; Hx Alcohol Use: No Hx Substance Use: No Preferred Language: [place] Citizen Communication Ability: Effective Canine Enforcement Officer Required: No Beliefs That Will Affect Care: None marital status: marital status details: German [phone]) [phone] Current Living Situation: Spouse Current Living Situation Comment: lives with spouse, 2 dogs. 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 [employer] Other Information That Helps Us Care for You: No Feels Safe at Home: Yes Safety Concerns: Feels Safe At This Time Assistive Devices: None Review of Systems All systems reviewed & are unremarkable except as noted in HPI & below Physical Exam Constitutional: WD/WN, vitals as above Respiratory: normal respiratory effort, lungs clear to auscultation Cardiovascular: RRR, no murmur, no edema Psychiatric: A+Ox3, euthymic affect Genitourinary: OB Exam Abdomen: + vertex, + estimated weight (7-8 pounds) and + irregular contractions Manual OB Exam: + cervical dilation 2 cm, + cervical effacement 90% and + station (exam difficult as balloon still in cervix) -2 OB Exam Monitor Tracing: + external FHT monitor used, + external uterine monitor used, + category I and + normal FHT variability Results & Data ([facility]) Vital Signs (Past 12 Hours) Vital Signs Temp Pulse Resp BP 10/07/21 08:00 97.9 F 92 H 20 120/71 10/07/21 07:59 92 H 120/71 Code Status & VTE Plan VTE Prophylaxis Plan VTE Prophylaxis will be ordered: No Coding Level of Care Code None Diagnoses Unfavorable cervix in term O34.40 Encounter for induction of labor Z34.90
--- NOTE | 2021-10-07 09:56 | History & Physical Report ---
Date of Service October 07, 2021 Assessment & Plan (1) Encounter for induction of labor: Admission and Anticipated Discharge Date Admission Date: October 07, 2021 History of Present Illness Chief Complaint: IOL Primary Care Provider: Negin Guillen MD Allergies Allergy/AdvReac Type Severity Reaction Status Date / Time No Known Allergies Allergy Verified 10/07/21 09:28 Home Medications Medication Instructions Recorded Confirmed Type prenat.vits,christin,jlu-[id number]-[id number] 1 tab PO DAILY 07/16/20 10/07/21 History omega-3 fatty acids 1,000 mg 1,000 mg PO DAILY 02/22/21 10/07/21 History capsule (Fish Oil Concentrate) Past Med/Surg History Medical History (Updated 10/07/21 @ 09:32 by Jolene Ritter MD, FACOG) Acute sore throat Benign tumor of labia majora removed Cat bite Infected cat bite of hand Itching of ear Missed Rabies, need for prophylactic vaccination against Surgical History H/O removal of cyst urinary tract Family History Grandfather (Paternal) Stroke Denies family history of Ovarian cancer Breast cancer Colorectal cancer Uterine cancer Social History (Updated 02/22/21 @ 10:59 by Abby Roy) Smoking Status: Never smoker Second Hand Exposure: No; Hx Alcohol Use: No Hx Substance Use: No Preferred Language: Hebrew Communication Ability: Effective Executive Sous 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 Denies dyspnea, cough. Denies chest pain. Denies breast pain or discharge. Denies dysuria. Denies headache. Denies back pain. Physical Exam Physical Exam: General: Alert, oriented, no acute distress Cardiac: Regular rate and rhythm, normal S1, S2. No murmurs appreciated. Respiratory: Clear to auscultation b/l with good air flow entry, symmetric chest rise and fall. No wheezes or crackles. No increased work of breathing or accessory muscle use Abdomen: Gravid, soft, nontender. No guarding or CVA tenderness Skin: No rashes or lesions Extremities: Warm, dry, well-perfused with capillary refill <2s b/l. No lower extremity edema, erythema or swelling. Negative Yovani's sign b/l. Pelvic Exam per Dilation: Effacement: Station: FHR Baseline: BPM Variability: Accelerations: Decelerations: Results & Data Results & Data ([facility]) Vital Signs (Past 12 Hours) Vital Signs Temp Pulse Resp BP 10/07/21 08:00 36.6 C 92 H 20 120/71 10/07/21 07:59 92 H 120/71 Code Status & VTE Plan VTE Prophylaxis Plan VTE Prophylaxis will be ordered: No Resident Activity Tracking Resident Involvement: Resident Care Provided Care Provided: OB Delivery
--- NOTE | 2021-10-07 17:27 | Labor Progress Brief Note ---
Date of Service October 07, 2021 Subjective Feeling ctx. FHT Cat 1 [place] Q 2-4 SVE 5/70/-2, murillo bulb in vagina AROM clear fluid Pit @ 7 Continue pitocin, continue IOL. OK for epidural when she desires. Assessment & Plan Admission and Anticipated Discharge Date Admission Date: October 07, 2021 Results & Data ([facility]) Vital Signs (Past 12 Hours) Vital Signs Temp Pulse Resp BP 10/07/21 16:08 78 20 120/67 10/07/21 15:00 36.6 C 74 20 129/80 10/07/21 13:17 67 110/56 L 10/07/21 12:00 36.8 C 66 20 112/63 10/07/21 11:03 68 132/61 10/07/21 10:08 78 20 110/64 10/07/21 08:00 36.6 C 92 H 20 120/71 10/07/21 07:59 92 H 120/71 Coding Level of Care Code None
[2021-10-07] MEDS ORDERED: ePHEDrine sulfate 50 MG/ML AMP ONE (18:23)
[2021-10-07] MEDS ORDERED: BUPIVACAINE 0.25% 30 ML VIAL ONE (18:23)
[2021-10-07] MEDS ORDERED: fentaNYL citrate 100 MCG/2 ML VIAL ONE (18:23)
[2021-10-07] MEDS ORDERED: SODIUM CHLORIDE 0.9% INJ 10 ML VIAL ONE (18:23)
--- NOTE | 2021-10-07 18:23 | Anesthesiology Consultation ---
Date of Service October 07, 2021 Assessment & Plan (1) Encounter for pre-operative examination: Chart Review Chart Review: Acceptable Risk for Surgery and Patient NOT seen in Pre Admission Testing Consults Requested none History Height/Weight Height: 5 ft 4 in Weight: 88.904 kg Allergies Allergy/AdvReac Type Severity Reaction Status Date / Time No Known Allergies Allergy Verified 10/07/21 09:28 Medications Home Medications Medication Instructions Recorded Confirmed Last Taken prenat.vits,christin,okz-qcvj-kdilf 1 tab PO DAILY 07/16/20 10/07/21 10/06/21 14:00 omega-3 fatty acids 1,000 mg 1,000 mg PO DAILY 02/22/21 10/07/21 10/06/21 14:00 capsule (Fish Oil Concentrate) Active Medications Generic Name Dose Route Start Last Admin Trade Name Freq PRN Reason Stop Dose Admin Lactated Ringer's 1,000 mls @ 125 mls/hr 10/07/21 08:18 10/07/21 17:23 Lr IV 10/09/21 08:17 999 mls/hr .Q8H PRN Infusion L&D Protocol Protocol Oxytocin 30 units in 500 mls @ 7 mls/hr 10/07/21 08:21 10/07/21 14:30 Pitocin IV 10/09/21 08:20 0.42 units/hr .Q24H PRN 7 mls/hr Labor Induction/Augmentation Titration Protocol 0.42 UNITS/HR Past Medical History Medical History Acute sore throat Benign tumor of labia majora removed Cat bite Infected cat bite of hand Itching of ear Missed Rabies, need for prophylactic vaccination against Past Family History Family History Grandfather (Paternal) Stroke Denies family history of Ovarian cancer Breast cancer Colorectal cancer Uterine cancer Past Surgical History Surgical History H/O removal of cyst urinary tract Social History Smoking Status: Never smoker Hx Alcohol Use: No alcohol intake frequency: 0-2 drinks per day Hx Substance Use: No substance use type: does not use Physical Exam Vital Signs Last Vital Signs Temp 97.9 F 10/07/21 15:00 Pulse 70 10/07/21 18:01 Resp 20 10/07/21 16:08 BP 117/57 L 10/07/21 18:01 Testing Laboratory Results 10/07/21 08:44 10/07/21 08:41 POC Glucose 106 H
[2021-10-07] MEDS ORDERED: fentaNYL 2MCG/ML ROPIVACAINE 1.25MG/ML 100 ML BAG EPI ONE (18:24)
[2021-10-07] MEDS ORDERED: fentaNYL 2MCG/ML ROPIVACAINE 1.25MG/ML 100 ML BAG EPI PRN (18:28)
--- NOTE | 2021-10-07 22:26 | Labor Progress Brief Note ---
Date of Service October 07, 2021 Subjective Patient is comfortable after epidural. FHT Cat 2 - variable decelerations SVE 5/90/-2, head moulding. IUPC placed, contractions are adequate. Repositioning did not help with decels, have now stopped the pitocin. Discussed with patient. Assessment & Plan Admission and Anticipated Discharge Date Admission Date: October 07, 2021 Results & Data ([facility]) Vital Signs (Past 12 Hours) Vital Signs Temp Pulse Resp BP Pulse Ox 10/07/21 22:23 94 H 99 10/07/21 22:18 77 99 10/07/21 22:15 73 113/58 L 10/07/21 22:13 79 99 10/07/21 22:08 71 100 10/07/21 22:03 78 99 10/07/21 22:00 76 118/55 L 10/07/21 21:58 75 100 10/07/21 21:53 75 99 10/07/21 21:48 79 99 10/07/21 21:45 76 109/57 L 10/07/21 21:43 76 98 10/07/21 21:38 78 99 10/07/21 21:33 82 100 10/07/21 21:31 64 121/73 10/07/21 21:28 80 99 10/07/21 21:23 73 98 10/07/21 21:18 73 98 10/07/21 21:15 75 126/66 10/07/21 21:13 73 99 10/07/21 21:08 73 99 10/07/21 21:03 69 100 10/07/21 21:00 36.8 C 18 10/07/21 20:59 67 124/76 10/07/21 20:58 67 99 10/07/21 20:53 70 98 10/07/21 20:48 78 98 10/07/21 20:45 72 122/73 10/07/21 20:43 78 100 10/07/21 20:38 82 98 10/07/21 20:33 79 99 10/07/21 20:30 75 134/68 10/07/21 20:28 80 99 10/07/21 20:23 74 99 10/07/21 20:18 72 98 10/07/21 20:15 73 102/57 L 10/07/21 20:13 75 98 10/07/21 20:08 73 98 10/07/21 20:03 80 98 10/07/21 19:59 75 105/56 L 10/07/21 19:58 76 99 10/07/21 19:53 77 99 10/07/21 19:48 86 99 10/07/21 19:45 80 101/56 L 10/07/21 19:43 77 98 10/07/21 19:38 77 99 10/07/21 19:33 92 H 99 10/07/21 19:29 88 114/60 10/07/21 19:28 80 99 10/07/21 19:23 79 100 10/07/21 19:18 80 100 10/07/21 19:14 86 120/62 10/07/21 19:13 84 100 10/07/21 19:10 86 115/57 L 10/07/21 19:08 81 100 10/07/21 19:03 84 120/58 L 100 10/07/21 19:01 86 118/60 10/07/21 18:59 83 116/58 L 10/07/21 18:58 86 100 10/07/21 18:57 76 111/65 10/07/21 18:55 83 116/59 L 10/07/21 18:53 72 113/62 99 10/07/21 18:51 89 116/67 10/07/21 18:48 85 100 10/07/21 18:43 81 100 10/07/21 18:38 74 100 10/07/21 18:33 74 100 10/07/21 18:28 78 100 10/07/21 18:01 70 20 117/57 L 10/07/21 16:08 78 20 120/67 10/07/21 15:00 36.6 C 74 20 129/80 10/07/21 13:17 67 110/56 L 10/07/21 12:00 36.8 C 66 20 112/63 10/07/21 11:03 68 132/61 Coding Level of Care Code None
--- NOTE | 2021-10-07 23:09 | History & Physical Bridge Note ---
Date of Service October 07, 2021 History & Physical Bridge Note I have examined the patient, reviewed the History & Physical and in the interval since the performance of the History & Physical I have noted the following changes of clinical significance: no changes noted. Patient has continued to have recurrent decelerations, even after all resuscitative measures. I have recommended delivery by section. Reviewed informed consent, she is agreeable. Questions answered.
[2021-10-07] MEDS ORDERED: LACTATED RINGER'S 1,000 ML IV SCH (23:15)
[2021-10-07] MEDS ORDERED: ceFAZolin 2000MG 2,000 MG/15 ML SYR IV SCH (23:30)
[2021-10-07] MEDS ORDERED: CITRIC ACID/SODIUM CITRATE 15 ML UDC PO SCH (23:30)
[2021-10-08] MEDS ORDERED: MoRPHine SULFATE PF 1 MG/ML 10 ML AMP/VIAL ONE (00:01)
[2021-10-08] MEDS ORDERED: ACETAMINOPHEN 325 MG TAB PO PRN (00:05)
[2021-10-08] MEDS ORDERED: NALOXONE HCL 0.4 MG/1 ML VIAL/CARP IV PRN (00:05)
[2021-10-08] MEDS ORDERED: ONDANSETRON INJ 2 MG/ML 2 ML VIAL IV PRN ×2 (00:05→18:05)
[2021-10-08] MEDS ORDERED: LACTATED RINGER'S 500 ML IV PRN (00:05)
[2021-10-08] MEDS ORDERED: HYDROmorphone INJ 0.5 MG/0.5 ML SYR IV PRN (00:05)
[2021-10-08] MEDS ORDERED: NALBUPHINE HCL INJ 10 MG/ML AMP IV PRN (00:05)
[2021-10-08] MEDS ORDERED: ePHEDrine sulfate 50 MG/ML AMP IV PRN (00:05)
[2021-10-08] MEDS ORDERED: diphenhydrAMINE 50 MG/ML VIAL IV PRN ×2 (00:05→18:05)
[2021-10-08] MEDS ORDERED: NALOXONE HCL 1 MG in SODIUM CHLORIDE 0.9% 1000ML 1,000 ML IV PRN (00:05)
[2021-10-08] MEDS ORDERED: NALOXONE HCL 0.08 MG in SYRINGE 1.8 ML IV PRN (00:05)
[2021-10-08] MEDS ORDERED: MoRPHine SULFATE PF 1 MG/ML 10 ML AMP/VIAL EPI ONE (00:05)
[2021-10-08] MEDS ORDERED: SODIUM CHLORIDE 0.9% 1000ML 1,000 ML IV SCH (00:15)
[2021-10-08] MEDS ORDERED: DC INTRASPINAL MORPHINE SCH (00:15)
[2021-10-08] MEDS ORDERED: NO NARCOTICS OR SEDATIVES SCH (00:15)
[2021-10-08 00:25] LABS: Base Excess Cord Venous Blood -0.8 mEq/L (-7.7-1.9); Cord Venous Blood HCO3 25 mmol/L (18.4-26.8); Cord Venous Blood PCO2 46 mmHg (30.4-57.2); Cord Venous Blood PO2 20 mmHg (14.1-43.3); Cord Venous Blood pH 7.36 (7.20-7.44)
[2021-10-08 00:26] LABS: Base Excess Cord Arterial Bld -1.7 mEq/L (-9-1.8); CO2 Cord Arterial Blood 63 mmHg (39.1-73.5); HCO3 Cord Arterial Blood 27 mmol/L (19.7-28.5); PO2 Cord Arterial Blood 13 mmHg (4.1-31.7); pH Cord Arterial Blood 7.25 (7.1-7.38)
[2021-10-08 00:33] LABS: O2 Saturation Cord Venous Bld < 68.0 % (<68); Oxygen Sat Cord Arterial Blood < 60.0 % (<60)
[2021-10-08] MEDS ORDERED: ONDANSETRON INJ 2 MG/ML 2 ML VIAL ONE (00:33)
[2021-10-08] MEDS ORDERED: KETOROLAC 30 MG/ML VIAL ONE (00:33)
[2021-10-08] MEDS ORDERED: LIDOCAINE 2%/EPINEPHRINE 1:200,000 20 ML SDV ONE (00:33)
--- NOTE | 2021-10-08 00:55 | Operative Report ---
PG Post Operative Report Pre & Post Diagnosis Operation Date: 10/07/21 22:55 Pre-Op Diagnosis: Non-reassuring heart tones Remote from delivery Post-Op Diagnosis: Same I identified the patient and participated in the time-out.: Yes Procedure Operation Date: 10/07/21 22:55 Actual Procedures Primary Low Transverse Section in LD for NRFHT and remote from delivery for LMC at 2357(Bilateral) - Mary Khan DO Surgeon Mary Khan DO Motor Vehicle Technician Fartun Cochran RN Estimated Blood Loss 600 Findings Consistent with Post-Op Diagnosis Viable male . Apgars 9/9. Weight 7#1oz. Specimens placenta, cord blood, cord gas Drains murillo clear yellow Anesthesia Type Labor Epidural Complications none Disposition Accompanied Patient To Recovery: No Disposition: L&D Indications 30yo @ 40 5/7 was undergoing IOL for postdates, developed recurrent variable decelerations nonresponsive to resuscitative measures. She was gerry adequately, but remained at 5cm dilation, therefore remote from delivery with nonreassuring heart tones. Description of Procedure The patient was seen in her labor and delivery room, risks benefits and alternatives to surgery were reviewed. Informed consent obtained. Questions were answered. She was taken to the operating room, redose of epidurall anesthesia was administered. She was then prepared and draped in the usual sterile fashion in the supine position with a leftward tilt. Timeout was confirmed. A Pfannenstiel skin incision was made with a scalpel, and carried through to the underlying layer of fascia. Fascia was nicked at midline, and this incision was extended bilaterally. The superior aspect of the fascial incision was grasped with Jos clamps x2, elevated off the underlying rectus abdominis muscles, and dissected sharply and bluntly. In similar fashion, the inferior aspect of the fascial incision was dissected. The rectus abdominis muscles were , and the peritoneum was entered bluntly digitally. This was extended bilaterally. The bladder flap was taken down carefully using Metzenbaum scissors. Using a new scalpel, a low transverse uterine incision was created. Clear amniotic fluid noted. The was delivered from a cephalic presentation. The head delivered, followed by shoulders and body. Spontaneous cry on the field. The cord was doubly clamped and cut, and the infant was handed off to the waiting knitting supervisor. A segment was retained for cord gases. Cord blood was obtained. The placenta was delivered spontaneously intact. The uterus was exteriorized, and cleared of all clots and debris. The hysterotomy incision was reapproximated using 0 Vicryl in a running locked stitch. A second layer of the same suture was used to imbricate the incision. Posterior uterus was evaluated and normal. The uterus was returned to the abdomen, and gutters were cleared of clots and debris. Figure of eight sutures of 2-0 vicryl and Meagan powder were used on the hysterotomy to obtain hemostasis. After these measures, excellent hemostasis was observed. The fascial incision was reapproximated using 0 Vicryl in a running stitch. The subcutaneous tissue was irrigated, and reapproximated using 2-0 plain gut in a running stitch. The skin was reapproximated using 4-0 Vicryl in a running subcuticular stitch. Steri-Strips and a bandage were applied. The patient tolerated the procedure well, and will be taken to the recovery area in stable and good condition. I attest to the content of the Intraoperative Record and any orders documented therein. Any exceptions are noted below. OB Procedure Charges 37529
--- NOTE | 2021-10-08 01:03 | Anesthesiology Progress Note ---
Date of Service October 08, 2021 Anesthesia Post Procedure Vital Signs Vital Signs: Temp Pulse Resp BP Pulse Ox 10/08/21 01:00 77 100 10/08/21 00:55 75 100 10/08/21 00:54 78 123/56 L 10/07/21 23:33 85 99 10/07/21 23:29 82 125/63 10/07/21 23:28 87 100 10/07/21 23:23 82 99 10/07/21 23:18 75 99 10/07/21 23:15 94 H 133/90 10/07/21 23:13 96 H 98 10/07/21 23:08 91 H 100 10/07/21 23:03 102 H 100 10/07/21 22:59 96 H 130/82 10/07/21 22:58 80 100 10/07/21 22:53 85 100 10/07/21 22:48 95 H 100 10/07/21 22:44 71 132/74 10/07/21 22:43 76 100 10/07/21 22:38 77 100 10/07/21 22:33 81 100 10/07/21 22:30 79 131/71 10/07/21 22:28 77 100 10/07/21 22:23 94 H 99 10/07/21 22:18 77 99 10/07/21 22:15 73 113/58 L 10/07/21 22:13 79 99 10/07/21 22:08 71 100 10/07/21 22:03 78 99 10/07/21 22:00 76 118/55 L 10/07/21 21:58 75 100 10/07/21 21:53 75 99 10/07/21 21:48 79 99 10/07/21 21:45 76 109/57 L 10/07/21 21:43 76 98 10/07/21 21:38 78 99 10/07/21 21:33 82 100 10/07/21 21:31 64 121/73 10/07/21 21:28 80 99 10/07/21 21:23 73 98 10/07/21 21:18 73 98 10/07/21 21:15 75 126/66 10/07/21 21:13 73 99 10/07/21 21:08 73 99 10/07/21 21:03 69 100 10/07/21 21:00 98.2 F 18 03/04/22 20:59 67 124/76 10/07/21 20:58 67 99 10/07/21 20:53 70 98 10/07/21 20:48 78 98 10/07/21 20:45 72 122/73 10/07/21 20:43 78 100 10/07/21 20:38 82 98 10/07/21 20:33 79 99 10/07/21 20:30 75 134/68 10/07/21 20:28 80 99 10/07/21 20:23 74 99 10/07/21 20:18 72 98 10/07/21 20:15 73 102/57 L 10/07/21 20:13 75 98 10/07/21 20:08 73 98 10/07/21 20:03 80 98 10/07/21 19:59 75 105/56 L 10/07/21 19:58 76 99 10/07/21 19:53 77 99 10/07/21 19:48 86 99 10/07/21 19:45 80 101/56 L 10/07/21 19:43 77 98 10/07/21 19:38 77 99 10/07/21 19:33 92 H 99 10/07/21 19:29 88 114/60 10/07/21 19:28 80 99 10/07/21 19:23 79 100 10/07/21 19:18 80 100 10/07/21 19:14 86 120/62 10/07/21 19:13 84 100 10/07/21 19:10 86 115/57 L 10/07/21 19:08 81 100 10/07/21 19:03 84 120/58 L 100 10/07/21 19:01 86 118/60 10/07/21 18:59 83 116/58 L 10/07/21 18:58 86 100 10/07/21 18:57 76 111/65 10/07/21 18:55 83 116/59 L 10/07/21 18:53 72 113/62 99 10/07/21 18:51 89 116/67 10/07/21 18:48 85 100 10/07/21 18:43 81 100 10/07/21 18:38 74 100 10/07/21 18:33 74 100 10/07/21 18:28 78 100 10/07/21 18:01 70 20 117/57 L 10/07/21 16:08 78 20 120/67 10/07/21 15:00 97.9 F 74 20 129/80 10/07/21 13:17 67 110/56 L 10/07/21 12:00 98.2 F 66 20 112/63 10/07/21 11:03 68 132/61 10/07/21 10:08 78 20 110/64 10/07/21 08:00 97.9 F 92 H 20 120/71 10/07/21 07:59 92 H 120/71 Pain Intensity Bilateral Lower Abdomen: Pain Intensity: 2 Transfer of Care Handoff Completed per policy Notes Mental Status: alert / awake / arousable and participated in evaluation Patient Amnestic to Procedure: No Nausea / Vomiting: adequately controlled Pain: adequately controlled Airway Patency, RR, SpO2: stable & adequate BP & HR: stable & adequate Hydration State: stable & adequate Neuraxial Anesthesia: was administered and sensory block is resolving Anesthetic Complications: no major complications apparent and Pt Satisfied with anesthetic care
--- NOTE | 2021-10-08 01:03 | Anesthesia Procedure Note ---
Date of Service October 08, 2021 Anesthesia Post Epidural Note Vital Signs Vital Signs: Temp Pulse Resp BP Pulse Ox 98.2 F 77 18 123/56 L 100 10/07/21 21:00 10/08/21 01:00 10/07/21 21:00 10/08/21 00:54 10/08/21 01:00 Pain Intensity Bilateral Lower Abdomen: Pain Intensity: 2 Notes Mental Status: alert / awake / arousable and participated in evaluation Nausea / Vomiting: adequately controlled Pain: adequately controlled Airway Patency, RR, SpO2: stable & adequate BP & HR: stable & adequate Hydration State: stable & adequate Neuraxial Anesthesia: was administered and sensory block is resolving Anesthetic Complications: no major complications apparent and Pt Satisfied with anesthetic care Epidural: Removed without complications and With tip intact
[2021-10-08] MEDS ORDERED: SENNA 8.6 MG TAB PO PRN (03:02)
[2021-10-08] MEDS ORDERED: HYDROCORTISONE ACETATE 25 MG SUPP PR PRN (03:02)
[2021-10-08] MEDS ORDERED: BENZOCAINE 20% AER SPR 82.5 GM CAN EXT PRN (03:02)
[2021-10-08] MEDS ORDERED: MAGNESIUM HYDROXIDE SUSP 30 ML UDC PO PRN (03:02)
[2021-10-08] MEDS ORDERED: LACTATED RINGER'S 1,000 ML IV SCH (03:02)
[2021-10-08] MEDS ORDERED: DIPHTHERIA/TETANUS/PERTUSSIS 0.5 ML SYR/VIAL IM ONE (03:02)
[2021-10-08] MEDS: OXYTOCIN 30 UNITS in LACTATED RINGER'S 1,000 ML IV SCH ×2 (03:18→11:19)
--- NOTE | 2021-10-08 05:42 | Obstetrical Progress Note ---
Date of Service <Tami Short MD - Last Filed: 10/08/21 07:33> October 08, 2021 Assessment & Plan <Tami Short MD - Last Filed: 10/08/21 07:33> (1) delivery delivered: 30 yo , PNC complicated by GDMA1, now POD1 from LTCS at 40wk6d for variable decelerations nonresponsive to resuscitation and poor labor progression -Continue routine care- remove Murillo today -Advance diet to regular -Vitals reviewed- HDS, afebrile -Blood type A+, GBS-, Rubella immune -Encourage ambulation -Pain control with ibuprofen, oxycodone PRN -Encourage -F/u in 6 weeks with OB <Mary Khan DO - Last Filed: 10/08/21 07:42> (1) delivery delivered: Subjective <Tami Short MD - Last Filed: 10/08/21 07:33> Ambulation: ambulating normally Voiding: murillo catheter in place Passing Gas:: No Diet Tolerance:: clear liquids Lochia:: Moderate Feeding Type:: breast feeding Current Pain Level(1-10): 3 Pt doing well overall, no acute complaints or distress. Pain around incision site well controlled with medication. Eager to eat solid food today. Review of Systems Denies fever/chills. Denies dyspnea, cough. Denies chest pain. Denies breast pain or discharge. Denies dysuria. Denies headache. Denies back pain. Physical Exam <Tami Short MD - Last Filed: 10/08/21 07:33> General: Alert, oriented, no acute distress Cardiac: Regular rate and rhythm, normal S1, S2. No murmurs noted. Respiratory: Clear to auscultation b/l with good air flow entry, symmetric chest rise and fall. No wheezes or crackles. No increased work of breathing or accessory muscle use. Abdomen: Soft, diffuse mild tenderness, nondistended. Fundus firm and palpable at umbilicus. Surgical dressing clean, dry and intact without erythema, warmth or drainage. No guarding or rebound. Skin: No rashes or lesions Extremities: Warm, dry and well-perfused with capillary refill <2s b/l. No lower extremity edema, erythema or swelling. Negative Yovani's sign b/l. Results & Data ([facility]) <Tami Short MD - Last Filed: 10/08/21 07:33> Vital Signs (Past 12 Hours) Vital Signs Temp Pulse Resp BP Pulse Ox 10/08/21 03:05 77 96 10/08/21 03:00 87 96 10/08/21 02:55 79 95 10/08/21 02:54 18 10/08/21 02:53 80 108/55 L 10/08/21 02:50 83 95 10/08/21 02:45 77 96 10/08/21 02:43 77 118/55 L 10/08/21 02:40 75 95 10/08/21 02:35 77 96 10/08/21 02:33 76 114/59 L 10/08/21 02:30 80 96 10/08/21 02:25 88 95 10/08/21 02:24 18 10/08/21 02:23 90 112/61 10/08/21 02:20 87 96 10/08/21 02:15 84 95 10/08/21 02:13 86 103/58 L 10/08/21 02:10 80 97 10/08/21 02:05 78 96 10/08/21 02:03 73 108/57 L 10/08/21 02:00 78 96 10/08/21 01:55 79 96 10/08/21 01:54 81 99/55 L 10/08/21 01:50 79 96 10/08/21 01:45 78 96 10/08/21 01:44 83 18 111/60 10/08/21 01:40 81 97 10/08/21 01:35 82 97 10/08/21 01:34 82 18 124/60 10/08/21 01:30 82 96 10/08/21 01:25 81 95 10/08/21 01:24 90 18 123/56 L 10/08/21 01:20 79 95 10/08/21 01:15 82 95 10/08/21 01:14 16 10/08/21 01:13 85 113/58 L 10/08/21 01:10 80 95 10/08/21 01:09 82 94 10/08/21 01:05 75 96 10/08/21 01:04 71 18 111/56 L 10/08/21 01:00 77 100 10/08/21 00:55 75 100 10/08/21 00:54 36.6 C 78 18 123/56 L 10/07/21 23:33 85 99 10/07/21 23:29 82 125/63 10/07/21 23:28 87 100 10/07/21 23:23 82 99 10/07/21 23:18 75 99 10/07/21 23:15 94 H 133/90 10/07/21 23:13 96 H 98 10/07/21 23:08 91 H 100 10/07/21 23:03 102 H 100 10/07/21 22:59 96 H 130/82 10/07/21 22:58 80 100 10/07/21 22:53 85 100 10/07/21 22:48 95 H 100 10/07/21 22:44 71 132/74 10/07/21 22:43 76 100 10/07/21 22:38 77 100 10/07/21 22:33 81 100 10/07/21 22:30 79 131/71 10/07/21 22:28 77 100 10/07/21 22:23 94 H 99 10/07/21 22:18 77 99 10/07/21 22:15 73 113/58 L 10/07/21 22:13 79 99 10/07/21 22:08 71 100 10/07/21 22:03 78 99 10/07/21 22:00 76 118/55 L 10/07/21 21:58 75 100 10/07/21 21:53 75 99 10/07/21 21:48 79 99 10/07/21 21:45 76 109/57 L 10/07/21 21:43 76 98 10/07/21 21:38 78 99 10/07/21 21:33 82 100 10/07/21 21:31 64 121/73 10/07/21 21:28 80 99 10/07/21 21:23 73 98 10/07/21 21:18 73 98 10/07/21 21:15 75 126/66 10/07/21 21:13 73 99 10/07/21 21:08 73 99 10/07/21 21:03 69 100 10/07/21 21:00 36.8 C 18 10/07/21 20:59 67 124/76 10/07/21 20:58 67 99 10/07/21 20:53 70 98 10/07/21 20:48 78 98 10/07/21 20:45 72 122/73 10/07/21 20:43 78 100 10/07/21 20:38 82 98 10/07/21 20:33 79 99 10/07/21 20:30 75 134/68 10/07/21 20:28 80 99 10/07/21 20:23 74 99 10/07/21 20:18 72 98 10/07/21 20:15 73 102/57 L 10/07/21 20:13 75 98 10/07/21 20:08 73 98 10/07/21 20:03 80 98 10/07/21 19:59 75 105/56 L 10/07/21 19:58 76 99 10/07/21 19:53 77 99 10/07/21 19:48 86 99 10/07/21 19:45 80 101/56 L 10/07/21 19:43 77 98 10/07/21 19:38 77 99 10/07/21 19:33 92 H 99 10/07/21 19:29 88 114/60 10/07/21 19:28 80 99 10/07/21 19:23 79 100 10/07/21 19:18 80 100 10/07/21 19:14 86 120/62 10/07/21 19:13 84 100 10/07/21 19:10 86 115/57 L 10/07/21 19:08 81 100 10/07/21 19:03 84 120/58 L 100 10/07/21 19:01 86 118/60 10/07/21 18:59 83 116/58 L 10/07/21 18:58 86 100 10/07/21 18:57 76 111/65 10/07/21 18:55 83 116/59 L 10/07/21 18:53 72 113/62 99 10/07/21 18:51 89 116/67 10/07/21 18:48 85 100 10/07/21 18:43 81 100 10/07/21 18:38 74 100 10/07/21 18:33 74 100 10/07/21 18:28 78 100 10/07/21 18:01 70 20 117/57 L <Mary Khan DO - Last Filed: 10/08/21 07:42> Co-Signing Physician Notes Resident Physician Supervision Note: I was present with Dr. Short during the history and exam. I discussed the case with the resident and agree with the findings and plan as documented in the note. Any exceptions or clarifications are listed here: POD#1 doing well, no concerns. Will advance diet today, begin ambulation. Documented By: Mary Khan DO Resident Activity Tracking <Tami Short MD - Last Filed: 10/08/21 07:33> Resident Involvement: Resident Care Provided Care Provided: OB Delivery
[2021-10-08 09:07] LABS: Basophils # (auto) 0.01 K/uL (0-0.2); Basophils % (auto) 0.1 %; Eosinophils # (auto) 0.01 K/uL (0-0.5); Eosinophils % (auto) 0.1 %; Hematocrit (blood only) 33.1 % (37-47); Hemoglobin 11.4 g/dL (12.0-16.0); Immature Granulocytes # (auto) 0.05 K/uL (0.00-0.02); Immature Granulocytes % (auto) 0.3 %; Lymphocytes # (auto) 1.46 K/uL (1.2-3.4); Lymphocytes % (auto) 9.3 %; Mean Corpuscular Hemoglobin 31.8 pg (25-34); Mean Corpuscular Hgb Conc 34.4 g/dL (32-36); Mean Corpuscular Volume 92.2 fL (80-100); Mean Platelet Volume 8.8 fL (7.4-10.4); Monocytes % (auto) 5.1 %; Neutrophils % (auto) 85.1 %; Platelet Count 209 K/uL (130-400); RDW Coefficient of Variation 12.7 % (11.5-14.5); RDW Standard Deviation 43.1 fL (36.4-46.3); Red Blood Count 3.59 M/uL (4.2-5.4); White Blood Count 15.73 K/uL (4.8-10.8)
[2021-10-08] MEDS: SIMETHICONE 80 MG CHEW PO SCH ×4 (09:13→21:48)
[2021-10-08] MEDS: FERROUS SULFATE 325 MG TAB PO SCH (09:13)
[2021-10-08] MEDS: PRENATAL VITAMIN 1 TAB PO SCH (09:13)
[2021-10-08] MEDS: DOCUSATE SODIUM 100 MG CAP PO SCH ×2 (09:13→21:34)
[2021-10-08] MEDS: KETOROLAC 30 MG/ML VIAL IV PRN ×2 (09:14→16:30)
[2021-10-08] MEDS ORDERED: PROMETHAZINE HCL 25 MG in SODIUM CHLORIDE 0.9% 50 ML IV PRN (18:05)
[2021-10-08] MEDS ORDERED: diphenhydrAMINE Capsule 25 MG CAP PO PRN (18:05)
[2021-10-08] MEDS ORDERED: KETOROLAC 30 MG/ML VIAL IV PRN (18:05)
[2021-10-08] MEDS: IBUPROFEN 600 MG TAB PO PRN (21:34)
[2021-10-09] MEDS: oxyCODONE/ACETAMINOPHEN 5mg/325mg TAB PO PRN ×4 (00:34→16:01)
[2021-10-09] MEDS: IBUPROFEN 600 MG TAB PO PRN ×4 (02:24→16:00)
[2021-10-09 06:06] LABS: Hematocrit (blood only) 31.2 % (37-47); Hemoglobin 10.8 g/dL (12.0-16.0)
--- NOTE | 2021-10-09 07:07 | Obstetrical Progress Note ---
Date of Service October 09, 2021 Assessment & Plan (1) Encounter for care and examination after delivery: satisfactory post-op/ exam continue current care plan would like to be discharged later today if possible Subjective Ambulation: ambulating normally Voiding: no voiding problems Passing Gas:: Yes Diet Tolerance:: regular diet Lochia:: Small Feeding Type:: breast feeding Review of Systems All systems reviewed & are unremarkable except as noted in HPI & below Physical Exam Constitutional WD/WN, vitals as above Psychiatric A+Ox3, euthymic affect Genitourinary OB Exam Abdomen: + fundal height Fundus: + firm and + relation to umbilicus (1 below) incision dry and intact- no erythema Results & Data ([facility]) Vital Signs (Past 12 Hours) Vital Signs Temp Pulse Resp BP Pulse Ox 10/09/21 00:35 98.1 F 82 16 98/58 L 95 10/08/21 19:35 98.2 F 118 H 18 95/58 L 96
[2021-10-09] MEDS: DOCUSATE SODIUM 100 MG CAP PO SCH (08:30)
[2021-10-09] MEDS: PRENATAL VITAMIN 1 TAB PO SCH (08:30)
[2021-10-09] MEDS: SIMETHICONE 80 MG CHEW PO SCH ×2 (08:30→14:06)
[2021-10-09] MEDS: FERROUS SULFATE 325 MG TAB PO SCH (08:30)
[2021-10-09] MEDS ORDERED: PERCOCET 5/325MG HOMEPACK PO ONE (18:15)
[2021-10-09] MEDS ORDERED: bisacodyL 5 MG TABEC PO SCH (20:00)
[2021-10-10] MEDS ORDERED: bisacodyL 10 MG SUPP PR PRN (00:56)
--- NOTE | 2021-10-11 08:52 | Discharge Summary ---
Date of Service October 11, 2021 Discharge Data Consultations 10/07/21 08:18 Consult Anesthesiology Stat Procedures Performed Operation Date: 10/07/21 22:55 Actual Procedures p Section in LD for NRFHT and remote from delivery for LMC at 2357(Bilateral) - Mary Khan DO Hospital Course (1) 40 weeks gestation of : Admitted for induction of labor. Delivery by , routine postop care. Discharged home postop day 2, followup in office in 6w. For further details, please see chart. Coding Level of Care Code None Diagnoses 40 weeks gestation of Z3A.40
== END 2021-10-09 17:30 | disposition home or self-care (01) | DRG 788 ==
LOC: 4S1 07:47 → 4S2 10-08 03:29

== ENCOUNTER 2024-02-04 05:50 | Inpatient (IN) ==
--- NOTE | 2024-01-29 11:21 | History & Physical Report ---
Date of Service January 29, 2024 Assessment & Plan (1) Previous delivery affecting , antepartum: Plan: Plan for repeat section. Reviewed consent in office. Questions answered. History of Present Illness Chief Complaint: repeat section. Primary Care Provider: Negin Guillen MD 33yo with EDC 02/04/24. Plans for repeat section. Previous and wishes to *C/S RESCHEDULED FOR 02/04/[address] LUCY DARBY C/S SCHEDULED FOR 02/08/[address] AMBER WALL GDM previous - normal 1hr x 2 - NOT GDM *Begin monthly Growth US's @24wks WISHES RETESTING LSIL pap 2022, NATALIA 1 colposcopy 01/26 Pap post GBS+ *Treat in labor Allergies Allergy/AdvReac Type Severity Reaction Status Date / Time No Known Allergies Allergy Verified 01/29/24 09:09 Home Medications Medication Instructions Recorded Confirmed Type magnesium sulfate topical 07/13/23 01/29/24 History 21-iron fu-folic acid PO 07/13/23 01/29/24 History [ Complete] Patient History Medical History (Updated 01/29/24 @ 00:01 by Felice Zamoraon) Shingles History of chicken pox Missed Infected cat bite of hand Benign tumor of labia majora removed Surgical History H/O removal of cyst Family History Grandfather (Paternal) Stroke Denies family history of Ovarian cancer Breast cancer Colorectal cancer Uterine cancer Social History Smoking Status: Never smoker Second Hand Exposure: No; Do You Dip or Chew Tobacco: No; Hx Alcohol Use: No Hx Substance Use: No Preferred Language: Mohawk Communication Ability: Effective Senior Business Objects Developer Required: No Beliefs That Will Affect Care: None marital status: marital status details: German Chavira (34) [phone] Current Living Situation: Spouse and Family Current Living Situation Comment: lives with spouse, child, 2 dogs. 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 No s/s chorio or abruption. Skin: no rashes, warm and dry Psychiatric: A+Ox3, euthymic affect Coding Level of Care Code None Diagnoses Previous delivery affecting , antepartum O34.219
--- NOTE | 2024-01-29 14:51 | Anesthesiology Consultation ---
Date of Service January 29, 2024 Assessment & Plan (1) Encounter for pre-operative examination: Chart Review Chart Review: charge entry clerk initiated - Per OB records- patient wishing to try -Infectious Disease screening: Per PAT nursing assessment on 01/29/24. No known infectious disease contacts in past 10 days or current infectious disease symptoms. No recent travel outside the country. 10/07/21= Epidural dosed. ( due to non-reassuring heart tones) Labor Epidural 10/07/21= Done at L3-4 with 1 attempt History Surgery Operation Date: 02/04/24 07:30 Proposed Procedures p Section (Delivery of Baby Through Abdominal Incision) - Mary Khan, Height/Weight Height: 5 ft 4 in Weight: 86.183 kg Allergies Allergy/AdvReac Type Severity Reaction Status Date / Time No Known Allergies Allergy Verified 01/29/24 14:22 Medications Home Medications Medication Instructions Recorded Confirmed Last Taken L.acidophilus,rhamnosus-B.breve-S.thermophilus 1 tab PO QAM 01/29/24 01/29/24 Un known 3 billion cell chew tab kdqrqphm-wel-Xo-FA 1 mg 1 tab PO QAM 01/29/24 01/29/24 Unknown tablet Past Medical History Medical History 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 History of COVID-19 (2021) x 2, mild, resolved History of shingles (2018) Hx gestational diabetes (2021) History of with previous no gestational DM with current Past Family History Family History Grandfather (Paternal) Stroke Denies family history of Ovarian cancer Breast cancer Colorectal cancer Uterine cancer Past Surgical History Surgical History H/O removal of cyst (2012) urinary tract - benign tumor Hx of section (10/07/21) Social History Smoking Status: Never smoker Do You Dip or Chew Tobacco: No Hx Alcohol Use: Yes (not currently) alcohol intake frequency: 0-2 drinks per day Hx Substance Use: No substance use type: does not use
[2024-02-04] MEDS: LACTATED RINGER'S 1,000 ML IV SCH (07:30)
--- NOTE | 2024-02-04 07:33 | History & Physical Report ---
Date of Service February 04, 2024 Assessment & Plan (1) Previous delivery affecting , antepartum: Plan: Plan for repeat section, reviewed consent in office with patient. Questions answered. Admission and Anticipated Discharge Date Admission Date: February 04, 2024 History of Present Illness Chief Complaint: repeat CS Primary Care Provider: Negin Guillen MD 33yo @ 40 0/7, here for repeat section. Previous and wishes to *C/S RESCHEDULED FOR 02/04/[address] LUCY DARBY C/S SCHEDULED FOR 02/08/[address] 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 History of COVID-19 (2021) x 2, mild, resolved History of shingles (2018) Hx gestational diabetes (2021) History of with previous no gestational DM with current Surgical History H/O removal of cyst (2012) urinary tract - benign tumor Hx of section (10/07/21) Family History Grandfather (Paternal) Stroke Denies family history of Ovarian cancer Breast cancer Colorectal cancer Uterine cancer Social History Smoking Status: Never smoker Second Hand Exposure: No; Do You Dip or Chew Tobacco: No; Tobacco Cessation Education Requested by Patient: No Hx Alcohol Use: Yes (not currently) Hx Substance Use: No Preferred Language: Vietnamese Communication Ability: Effective Bus Washer Required: No Beliefs That Will Affect Care: None marital status: marital status details: German Chavira (35) [phone] Current Living Situation: Spouse and Family Current Living Situation Comment: lives with spouse, child, 2 dogs. 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 No s/s chorio or abruption. Skin: no rashes, warm and dry Psychiatric: A+Ox3, euthymic affect Results & Data Vital Signs (Past 12 Hours) Vital Signs Temp Resp 02/04/24 06:06 36.8 C 20 Coding Level of Care Code None Diagnoses Previous delivery affecting , antepartum O34.219
[2024-02-04] MEDS ORDERED: KETOROLAC 30 MG/ML VIAL ONE (07:44)
[2024-02-04] MEDS ORDERED: PHENYLEPHRINE HCL 25 MG/250 ML NSS IV ONE (07:44)
[2024-02-04] MEDS ORDERED: fentaNYL citrate PF 100 MCG/2 ML VIAL ONE (07:44)
[2024-02-04] MEDS ORDERED: OXYTOCIN 10 UNITS/ML VIAL ONE (07:44)
[2024-02-04] MEDS ORDERED: ONDANSETRON INJ 2 MG/ML 2 ML VIAL ONE (07:44)
[2024-02-04] MEDS ORDERED: MoRPHine SULFATE PF 1 MG/ML 10 ML AMP/VIAL ONE (07:45)
[2024-02-04 08:08] LABS: Basophils # (auto) 0.03 K/uL (0.00-0.20); Basophils % (auto) 0.4 %; Eosinophils # (auto) 0.04 K/uL (0.00-0.50); Eosinophils % (auto) 0.5 %; Hematocrit (blood only) 35.6 % (37.0-47.0); Hemoglobin 12.6 g/dl (12.0-16.0); Immature Granulocytes # (auto) 0.07 K/uL (0.01-0.20); Lymphocytes # (auto) 2.26 K/uL (1.20-3.40); Mean Corpuscular Hgb Conc 35.4 g/dL (32.0-36.0); Mean Corpuscular Volume 90.4 fL (80.0-100.0); Mean Platelet Volume 10.3 fL (9.4-12.4); Monocytes # (auto) 0.58 K/uL (0.11-0.59); Neutrophils # (auto) 4.31 K/uL (1.40-6.50); Neutrophils % (auto) 59.1 %; Platelet Count 203 K/uL (130-400); RDW Coefficient of Variation 12.2 % (11.5-14.5); RDW Standard Deviation 39.9 fL (36.4-46.3); Red Blood Count 3.94 M/uL (4.20-5.40); White Blood Count 7.29 K/ul (4.8-10.8)
[2024-02-04] MEDS ORDERED: HYDROmorphone INJ 0.5 MG/0.5 ML SYR IV PRN (10:19)
[2024-02-04] MEDS ORDERED: ONDANSETRON INJ 2 MG/ML 2 ML VIAL IV PRN (10:19)
[2024-02-04] MEDS ORDERED: diphenhydrAMINE 50 MG/ML VIAL IV PRN (10:19)
[2024-02-04] MEDS ORDERED: NALOXONE HCL 1 MG in SODIUM CHLORIDE 0.9% 1,000 ML IV PRN (10:19)
[2024-02-04] MEDS ORDERED: ePHEDrine sulfate 50 MG/ML AMP IV PRN (10:19)
[2024-02-04] MEDS ORDERED: NALBUPHINE HCL 5 MG in SYRINGE 0 ML IV PRN (10:19)
[2024-02-04] MEDS ORDERED: NALOXONE HCL 0.08 MG in SYRINGE 1.8 ML IV PRN (10:19)
[2024-02-04] MEDS ORDERED: LACTATED RINGER'S 500 ML IV PRN (10:19)
[2024-02-04] MEDS ORDERED: NALOXONE HCL 0.4 MG/1 ML VIAL/CARP IV PRN (10:19)
[2024-02-04] MEDS ORDERED: MoRPHine SULFATE PF 1 MG/ML 10 ML AMP/VIAL INT SPINAL ONE (10:19)
[2024-02-04] MEDS ORDERED: SODIUM CHLORIDE 0.9% 1,000 ML IV SCH (10:30)
[2024-02-04] MEDS ORDERED: NO NARCOTICS OR SEDATIVES SCH (10:30)
[2024-02-04] MEDS ORDERED: DC INTRASPINAL MORPHINE SCH (10:30)
[2024-02-04] MEDS: CITRIC ACID/SODIUM CITRATE 15 ML UDC PO SCH (10:55)
[2024-02-04] MEDS: ceFAZolin 2000MG 2,000 MG/15 ML SYR IV SCH (10:55)
[2024-02-04 11:54] LABS: Base Excess Cord Venous Blood -1.2 mEq/L (-7.7-1.9); Cord Venous Blood HCO3 26 mmol/L (18.4-26.8); Cord Venous Blood PCO2 51 mmHg (30.4-57.2); Cord Venous Blood PO2 < 20 mmHg (14.1-43.3); Cord Venous Blood pH 7.31 (7.20-7.44); O2 Saturation Cord Venous Bld < 60.0 % (<68)
[2024-02-04 12:00] LABS: Base Excess Cord Arterial Bld -3.5 mEq/L (-9-1.8); CO2 Cord Arterial Blood 60 mmHg (39.1-73.5); HCO3 Cord Arterial Blood 25 mmol/L (19.7-28.5); Oxygen Sat Cord Arterial Blood < 60.0 % (<60); PO2 Cord Arterial Blood < 20 mmHg (4.1-31.7); pH Cord Arterial Blood 7.23 (7.1-7.38)
--- NOTE | 2024-02-04 12:25 | Operative Report ---
Post Operative Report Pre & Post Diagnosis Operation Date: 02/04/24 09:00 Pre-Op Diagnosis: History of section x 1, desire for repeat Post-Op Diagnosis: Same I identified the patient and participated in the time-out.: Yes Procedure Operation Date: 02/04/24 09:00 Repeat Low Transverse Section Surgeon Mary Khan DO Almond Sorter Francesca Hess RN Quantitative Blood Loss (QBL) 500 Findings Consistent with Post-Op Diagnosis Viable male Apgars 8/9. Weight pending, please see nursery records. Specimens placenta, cord blood, cord gas Drains murillo clear yellow Anesthesia Type Spinal Complications none Disposition Accompanied Patient To Recovery: Yes Disposition: L&D Indications 33yo @ 40 0/7, history of section x 1, elect for repeat. Description of Procedure The patient was seen in her labor and delivery room, risks benefits and alternatives to surgery were reviewed. Informed consent obtained. Questions were answered. She was taken to the operating room, spinal anesthesia was administered. She was then prepared and draped in the usual sterile fashion in the supine position with a leftward tilt. Timeout was confirmed. A Pfannenstiel skin incision was made with a scalpel, and carried through to the underlying layer of fascia. Fascia was nicked at midline, and this incision was extended bilaterally. The superior aspect of the fascial incision was grasped with Jos clamps x2, elevated off the underlying rectus abdominis muscles, and dissected sharply and bluntly. In similar fashion, the inferior aspect of the fascial incision was dissected. The rectus abdominis muscles were , and the peritoneum was entered bluntly digitally. This was extended bilaterally. The bladder flap was taken down carefully using Metzenbaum scissors. Using a new scalpel, a low transverse uterine incision was created. Clear amniotic fluid noted. The infant was delivered from a cephalic presentation. The head delivered, followed by shoulders and body. Spontaneous cry on the field. The cord was doubly clamped and cut, and the infant was handed off to the [facility] safety engineer. A segment was retained for cord gases. Cord blood was obtained. The placenta was delivered spontaneously intact. The uterus was exteriorized, and cleared of all clots and debris. The hysterotomy incision was reapproximated using 0 Vicryl in a running locked stitch. A second layer of the same suture was used to imbricate the incision. Posterior uterus was evaluated and normal. The uterus was returned to the abdomen, and gutters were cleared of clots and debris. Excellent hemostasis was observed. The fascial incision was reapproximated using 0 Vicryl in a running stitch. The subcutaneous tissue was irrigated, and reapproximated using 2-0 plain gut in a running stitch. The skin was reapproximated using 4-0 Vicryl in a running subcuticular stitch. Steri-Strips and a bandage were applied. The patient tolerated the procedure well, and will be taken to the recovery area in stable and good condition. I attest to the content of the Intraoperative Record and any orders documented therein. Any exceptions are noted below. OB Procedure Charges 53072
[2024-02-04] MEDS ORDERED: MAGNESIUM HYDROXIDE SUSP 30 ML UDC PO PRN (12:58)
[2024-02-04] MEDS ORDERED: BENZOCAINE 20% SPRY 85 APPLN/85 GM CAN EXT PRN (12:58)
[2024-02-04] MEDS ORDERED: HYDROCORTISONE ACETATE 25 MG SUPP PR PRN (12:58)
[2024-02-04] MEDS ORDERED: SENNA 8.6 MG TAB PO PRN (12:58)
[2024-02-04] MEDS ORDERED: DIPHTHER/TETAN/PERTUS Vaccine (Tdap, Adol/Adult) 0.5mL IM ONE (12:58)
[2024-02-04] MEDS ORDERED: LACTATED RINGER'S 1,000 ML IV SCH (13:00)
--- NOTE | 2024-02-04 13:43 | Anesthesiology Progress Note ---
Date of Service February 04, 2024 Anesthesia Post Procedure Vital Signs Vital Signs: Temp Pulse Resp BP Pulse Ox 02/04/24 13:37 49 L 118/78 97 02/04/24 13:32 52 L 97 02/04/24 13:27 50 L 121/74 97 02/04/24 13:22 49 L 97 02/04/24 13:20 16 02/04/24 13:17 97 02/04/24 13:17 51 L 02/04/24 13:17 55 L 107/69 02/04/24 13:12 60 98 02/04/24 13:10 16 02/04/24 13:07 98 02/04/24 13:07 52 L 02/04/24 13:07 51 L 107/68 02/04/24 13:02 54 L 97 02/04/24 13:00 16 02/04/24 12:57 52 L 103/71 98 02/04/24 12:52 56 L 97 02/04/24 12:50 16 02/04/24 12:47 62 108/68 97 02/04/24 12:42 57 L 97 02/04/24 12:40 16 02/04/24 12:39 61 109/69 02/04/24 12:37 59 L 98 02/04/24 12:32 61 99 02/04/24 12:30 16 02/04/24 12:28 60 99/67 L 02/04/24 12:27 57 L 99 02/04/24 12:22 53 L 95 02/04/24 12:21 62 89 L 02/04/24 12:20 97.5 F L 16 02/04/24 12:18 59 L 96/54 L 02/04/24 12:17 58 L 97 02/04/24 06:06 98.2 F 20 Transfer of Care Handoff Completed per policy Notes Mental Status: alert / awake / arousable and participated in evaluation Patient Amnestic to Procedure: Yes Nausea / Vomiting: adequately controlled Pain: adequately controlled Airway Patency, RR, SpO2: stable & adequate BP & HR: stable & adequate Hydration State: stable & adequate Neuraxial Anesthesia: was administered and sensory block is resolving Anesthetic Complications: no major complications apparent and Pt Satisfied with anesthetic care
[2024-02-04] MEDS: OXYTOCIN 30 UNITS/LR 1,003 ML IV SCH (14:44)
[2024-02-04] MEDS: SIMETHICONE 80 MG CHEW PO SCH (14:45)
[2024-02-04] MEDS: ACETAMINOPHEN 1,000 MG/100 ML VIAL IV PRN (15:25)
[2024-02-04] MEDS: PROMETHAZINE HCL 6.25 MG in SODIUM CHLORIDE 0.9% 50 ML IV PRN (16:16)
[2024-02-04] MEDS: KETOROLAC 30 MG/ML VIAL IV PRN (20:00)
[2024-02-05] MEDS: KETOROLAC 30 MG/ML VIAL IV PRN (01:47)
[2024-02-05] MEDS ORDERED: ONDANSETRON INJ 2 MG/ML 2 ML VIAL IV PRN (04:19)
[2024-02-05] MEDS ORDERED: PROMETHAZINE HCL 25 MG in SODIUM CHLORIDE 0.9% 50 ML IV PRN (04:19)
[2024-02-05] MEDS ORDERED: diphenhydrAMINE Capsule 25 MG CAP PO PRN (04:19)
[2024-02-05] MEDS ORDERED: diphenhydrAMINE 50 MG/ML VIAL IV PRN (04:19)
[2024-02-05] MEDS: oxyCODONE/ACETAMINOPHEN 5mg/325mg TAB PO PRN (06:09)
--- NOTE | 2024-02-05 07:20 | Obstetrical Progress Note ---
Date of Service February 05, 2024 Assessment & Plan (1) state: routine care. Subjective Ambulation: ambulating normally Voiding: no voiding problems (already went x1) Passing Gas:: Yes Diet Tolerance:: regular diet Lochia:: Small Feeding Type:: breast feeding Physical Exam Constitutional WD/WN, vitals as above Eyes PERRL, conjunctivae normal, anicteric sclerae Neck normal visual inspection Respiratory normal respiratory effort and able to speak in complete sentences; no respiratory distress and no labored breathing Cardiovascular Rate/Rhythm: regular rate and regular rhythm Extremities: no edema Chest (Breasts) Chest: normal inspection of chest Gastrointestinal (Abdomen) Inspection/Auscultation: abdomen normal to inspection Soft, postgravid Dressing removed, steris remain, c/d/i Psychiatric A+Ox3, euthymic affect Genitourinary OB Exam Abdomen: + fundal height Fundus: + firm and + relation to umbilicus (f undus just below umbilicus); not tender Results & Data Vital Signs (Past 12 Hours) Vital Signs Temp Pulse Resp BP Pulse Ox O2 Del Method 02/05/24 04:00 16 100 02/05/24 03:00 16 100 02/05/24 02:15 98.4 F 64 16 107/70 97 Room Air 02/05/24 02:00 16 100 02/05/24 01:00 16 100 02/05/24 00:00 16 98 02/04/24 23:00 16 97 02/04/24 22:00 18 99 02/04/24 22:00 16 100 02/04/24 21:00 18 100 02/04/24 20:00 98.1 F 50 L 18 120/78 100 Room Air
[2024-02-05 08:16] LABS: Basophils # (auto) 0.01 K/uL (0.00-0.20); Basophils % (auto) 0.1 %; Eosinophils # (auto) 0.04 K/uL (0.00-0.50); Eosinophils % (auto) 0.6 %; Hematocrit (blood only) 30.6 % (37.0-47.0); Hemoglobin 10.6 g/dl (12.0-16.0); Immature Granulocytes # (auto) 0.03 K/uL (0.01-0.20); Immature Granulocytes % (auto) 0.4 %; Lymphocytes # (auto) 1.11 K/uL (1.20-3.40); Mean Corpuscular Hemoglobin 31.5 pg (25.0-34.0); Mean Corpuscular Hgb Conc 34.6 g/dL (32.0-36.0); Mean Corpuscular Volume 91.1 fL (80.0-100.0); Mean Platelet Volume 9.6 fL (9.4-12.4); Monocytes # (auto) 0.43 K/uL (0.11-0.59); Monocytes % (auto) 6.2 %; Neutrophils % (auto) 76.7 %; Platelet Count 151 K/uL (130-400); RDW Coefficient of Variation 12.4 % (11.5-14.5); RDW Standard Deviation 41.1 fL (36.4-46.3); Red Blood Count 3.36 M/uL (4.20-5.40); White Blood Count 6.92 K/ul (4.8-10.8)
[2024-02-05] MEDS: FERROUS SULFATE 325 MG TAB PO SCH (08:28)
[2024-02-05] MEDS: DOCUSATE SODIUM 100 MG CAP PO SCH (08:28)
[2024-02-05] MEDS: PRENATAL VITAMIN 1 TAB PO SCH (08:28)
[2024-02-05] MEDS: IBUPROFEN 600 MG TAB PO PRN (10:21)
[2024-02-05] MEDS: bisacodyL 5 MG TABEC PO SCH (20:03)
[2024-02-06 06:26] LABS: Hematocrit (blood only) 29.9 % (37.0-47.0); Hemoglobin 10.4 g/dl (12.0-16.0)
--- NOTE | 2024-02-06 07:35 | Obstetrical Progress Note ---
Date of Service February 06, 2024 Assessment & Plan (1) state: Satisfactory postop and course. Hoping to be discharged today if baby is discharged. Will send prescription for pain meds to listed pharmacy in preparation for discharge. Subjective Ambulation: ambulating normally Voiding: no voiding problems Passing Gas:: Yes Diet Tolerance:: regular diet Lochia:: Moderate Feeding Type:: breast feeding doing well - pain meds working Review of Systems All systems reviewed & are unremarkable except as noted in HPI & below Physical Exam Constitutional WD/WN, vitals as above Gastrointestinal (Abdomen) Inspection/Auscultation: + abdominal surgical incision (dry and intact- no cellulitis- dried blood on steri-strips) Psychiatric A+Ox3, euthymic affect Genitourinary OB Exam Abdomen: + fundal height Fundus: + firm and + relation to umbilicus (2 below U) Results & Data Vital Signs (Past 12 Hours) Vital Signs Temp Pulse Resp BP Pulse Ox O2 Del Method 02/05/24 23:30 97.5 F L 83 16 110/75 96 Room Air 02/05/24 20:00 Room Air 02/05/24 20:00 98.2 F 91 H 18 118/71 97 Room Air
[2024-02-06] MEDS ORDERED: bisacodyL 10 MG SUPP PR PRN (12:31)
--- NOTE | 2024-02-08 01:24 | Discharge Summary ---
Date of Service February 08, 2024 Admission HPI Per Admitting Provider 33yo @ 40 0/7, here for repeat section. Previous and wishes to *C/S RESCHEDULED FOR 02/04/[address] LUCY KHAN C/S SCHEDULED FOR 02/08/[address] AMBER WALL GDM previous - normal 1hr x 2 - NOT GDM *Begin monthly Growth US's @24wks WISHES RETESTING LSIL pap 2022, NATALIA 1 colposcopy 01/26 Pap post GBS+ *Treat in labor Admission Exam (Per Admitting) Constitutional WD/WN, vitals as above Respiratory normal respiratory effort, lungs clear to auscultation no respiratory distress Cardiovascular Rate/Rhythm: regular rate and regular rhythm Gastrointestinal (Abdomen) Inspection/Auscultation: abdomen normal to inspection Percussion/Palpation: abdomen soft; abdomen nontender Skin no rashes, warm and dry Psychiatric A+Ox3, euthymic affect Discharge Data Consultations 02/04/24 07:27 Consult Anesthesiology Stat Procedures Performed Operation Date: 02/04/24 09:00 Actual Procedures p Section (Delivery of Baby Through Abdominal Incision) - Lucy Khan, Hospital Course (1) state: Satisfactory postop and course. Hoping to be discharged today if baby is discharged. Will send prescription for pain meds to listed pharmacy in preparation for discharge. Coding Level of Care Code None Diagnoses state Z39.2
== END 2024-02-06 12:10 | disposition home or self-care (01) | DRG 788 ==
LOC: 4S1 05:50 → 4E2 14:52 → EDSTATUS 02-08 07:30